=== PATIENT | male | born 1945 | race Caucasian/White ===

== ENCOUNTER 2017-03-17 20:37 | Emergency (ER) | payer MEDICARE, BC ==
[~2017-03-17] VITALS: Ht 157.5 cm; Wt 67.1 kg
[~2017-03-17 20:37] MED LIST: AMIO200T2 PO; AMIO200T7 PO; DIGO125T PO; DILT120C71 PO; DOCU-150 PO; DOXA2TAB2 PO; FURO40TA4 PO; GABA-586 PO; GABA300C8 PO; HYDR-2678 PO; HYDR-971 PO; LISI-338 PO; LUTE6TAB PO; MULT-658 PO; PROP60CA PO; WARF2TAB7 PO
[2017-03-17 21:31] LABS: POTASSIUM ISTAT 4.4 mmol/L (3.5-5.0)
--- NOTE | 2017-03-17 21:44 | PHYS DOC ---
Past Medical History Past Medical History: A-Fib, CHF Additional Past Medical Histor: neuropathy, Past Surgical History: Pacemaker Additional Past Surgical Histo: mitral valve replacement Alcohol Use: None Drug Use: None Adult General Chief Complaint Chief Complaint: MULTIPLE COMPLAINTS HPI HPI 72-year-old male presenting to the emergency department today with injury to the patient's right knee. He reports sitting up in his chair tonight when his right knee locked up and he felt a spasm. The pain in his knee/thigh is moderate nonradiating intermittent and without alleviating factors. It is worse when he extends his leg. He also complains of right shoulder pain that is chronically been present for more than 7 days. It is a throbbing sensation that is worse in the morning in improved after using his shoulder. He denies chest pain or shortness of breath. He has a history of coronary artery disease and is status post a CABG or than 10 years ago. He also has a pacemaker. He denies passing out tonight or falling. Review of systems is negative for nausea vomiting diaphoresis abdominal pain fevers or chills. All other review of systems is negative unless otherwise noted in history of present illness. ED course: 72-year-old male presenting to the emergency department today with right knee pain which is acute. He also complains of a chronic right shoulder pain. Patient is afebrile with a tachycardic pulse of 120 otherwise saturating well on room air. Patient is resting comfortably in the examination room on physical exam. Abdomen is soft nontender. Lungs are clear to auscultation. Mild irregular tachycardia noted on cardiac auscultation and palpation of the radial artery consistent with atrial fibrillation. The patient states that he commonly has to switch his heart rate medications from being too strong to being too weak , changing the dosage, which he does with his city auditor Dr. Falcon. He denies feeling short of breath or feeling palpitations. Pt strongly does not want to stay in the hospital. I discussed the case with Dr. Falcon the patient's city auditor who recommends changing his outpatient diltiazem from 120 mg to 180 mg and following up in clinic within the next 4-5 days. Review of Systems Review of Systems SEE ABOVE. Current Medications Current Medications Current Medications Medications (Trade) Dose Ordered Sig/Sara Start Time Stop Time Status Last Admin Dose Admin Acetaminophen/ Hydrocodone Bitart (Lortab 5/325) 1 tab 1X ONCE 03/17/17 22:00 03/17/17 22:01 DC 03/17/17 21:49 1 TAB Cyclobenzaprine HCl (Flexeril) 10 mg 1X ONCE 03/17/17 22:00 03/17/17 22:01 DC 03/17/17 21:49 10 MG Allergies Allergies Allergies Coded Allergies Type Severity Reaction Last Updated Verified No Known Drug Allergies 05/19/16 No Physical Exam Physical Exam SEE ABOVE Constitutional: Well developed, well nourished, no acute distress, non-toxic appearance. HENT: Normocephalic, atraumatic, bilateral external ears normal, oropharynx moist, no oral exudates, nose normal. Eyes: PERRLA, EOMI, conjunctiva normal, no discharge. Neck: Normal range of motion, no tenderness, supple, no stridor. Cardiovascular:mild tachycardia with irregular rhythm, no murmur [] Lungs & Thorax: Bilateral breath sounds clear to auscultation Abdomen: Bowel sounds normal, soft, no tenderness, no masses, no pulsatile masses. [] Skin: Warm, dry, no erythema, no rash. Back: No tenderness, no CVA tenderness. Extremities: The patient's right knee is normal appearing without any abrasions lacerations or ecchymosis. No effusion. Palpable pulse distally. Patient has pain on the medial portion of his hamstrings when he extends his leg. There is no erythema overlying. Otherwise nontender ankle and hip with normal range of motion of the ankle and hip. The patient's right upper extremity is normal appearing. He has mild pain with passive range of motion of the right shoulder. Pulses distally with normal neurovascular status of the hand. Nontender elbow. Patient is able to externally rotate and internally rotate without difficulty. He has mild pain with abduction. The remainder the extremities are nontender with normal range of motion. Neurologic: Alert and oriented X 3, normal motor function, normal sensory function, no focal deficits noted. Psychologic: Affect normal, judgement normal, mood normal. [] Current Patient Data Vital Signs Vital Signs Date Time Temp Pulse Resp B/P (MAP) Pulse Ox O2 Delivery O2 Flow Rate FiO2 03/17/17 23:23 128 115/86 (96) 94 Room Air 03/17/17 20:55 98.4 22 98.4 Lab Values Laboratory Tests Test 03/17/17 21:21 03/17/17 21:24 POC Troponin I 0.00 ng/ml (<0.08) POC Hemoglobin 13.3 g/dL (14-18) L POC Hematocrit 39 % (37-52) POC Sodium 142 mmol/L (135-145) POC Potassium 4.4 mmol/L (3.5-5.0) POC Chloride 111 mmol/L (98-110) H POC Total CO2 21 mmol/L (23-32) L Anion Gap 16 mmol/L (6-14) H POC Blood Urea Nitrogen 26 mg/dL (8-26) POC Creatinine 1.6 mg/dL (0.5-1.4) H Glucose Level 106 mg/dL (70-99) H POC Ionized Calcium (Carlos) 1.11 mmol/L (1.13-1.32) L Laboratory Tests 03/17/17 21:24 EKG EKG []EKG reviewed by myself shows atrial fibrillation with tachycardia at [address] segments show minimal isolated ST depression likely from strain vs repol in lead V5. Otherwise QRS is prolonged mildly 106ms. Radiology/Procedures Radiology/Procedures [] Course & Med Decision Making Course & Med Decision Making Pertinent Labs and Imaging studies reviewed. (See chart for details) [] Dragon Disclaimer Dragon Disclaimer This electronic medical record was generated, in whole or in part, using a voice recognition dictation system. Departure Departure Impression: Primary Impression: Right hamstring injury Additional Impressions: Right shoulder pain Tachycardia Disposition: HOME, SELF-CARE Condition: STABLE Referrals: MICHELLE FISCHER MD (PCP) Patient Instructions: Hamstring Strain Additional Instructions: Thank you for allowing us to participate in your care today. Days with your city auditor because your heart rate is a little faster than normal. He recommends that we increase your diltiazem from 120 mg to 180 mg. He recommends that you call him in clinic tomorrow to schedule appointment. Call your Primary Doctor tomorrow and inform them of your visit today. If you do not have a primary care provider you can ask for a list of our primary care providers. Return to the emergency department you have any new or concerning findings. This should be evaluated by the primary care physician and any necessary consulting services for continued management within a few days after discharge. Return to emergency room if you have any new or concerning symptoms including but not limited to fever, chills, nausea, vomiting, intractable pain, any new rashes, chest pain, shortness of air, uncontrolled bleeding, difficulty breathing, and/or vision loss. You may have been prescribed medication that can change in your level of thinking and ability to operate machinery. These medications include hydrocodone and Ativan. Also, Benadryl has been known to do this as well. Be sure to check with your pharmacist and ask if the medications you've prescribed can affect your level of consciousness. I recommend not operating heavy machinery or driving while on medication such as these. Scripts Hydrocodone Bit/Acetaminophen (HYDROCODONE-APAP 5-325 ) 1 Each Tablet 1 TAB PO PRN Q6HRS Y for PAIN, #10 TAB 0 Refills Be careful as this medication may cause you to be drowsy or tired. Do not drive on this medication. Prov: ELINOR TENA MD 03/17/17 Cyclobenzaprine Hcl (CYCLOBENZAPRINE HCL) 5 Mg Tablet 1 TAB PO TID PRN Y for PAIN, #20 TAB Prov: ELINOR TENA MD 03/17/17 Diltiazem Hcl (DILTIAZEM 24HR CD) 180 Mg Cap.er.24h 1 CAP PO DAILY, #14 CAP 0 Refills Prov: ELINOR TENA MD 03/17/17 Problem Qualifiers ELINOR TENA MD Mar 17, 2017 21:44
[2017-03-17] MEDS ORDERED: CYCLOBENZAPRINE 10 MG TABLET. PO ONE (22:00)
[2017-03-17] MEDS ORDERED: HYDROcodone/APAP 5/325MG 1 TAB TABLET PO ONE (22:00)
[2017-03-17] MEDS ORDERED: DILT180C29 PO (22:27)
--- NOTE | 2017-03-17 22:52 | RAD ---
Three-view right knee radiographs 03/17/2017 CLINICAL HISTORY: Right knee pain. AP, lateral and oblique digital radiographs of the right knee were obtained. Moderate to severe degenerative changes are seen involving all 3 compartments of the right knee. These consist of joint compartment narrowing, subchondral sclerosis and associated osteophyte formation. No acute fracture or dislocation of the right knee is seen.. There is no radiographic evidence for joint effusion. Calcification of the right popliteal artery is noted. IMPRESSION: Moderate to severe degenerative changes are seen involving the right knee. No acute osseous abnormality is seen. Electronically signed by: Manoj Fall MD (03/17/2017 10:49 PM) [facility]
[2017-03-17] MEDS ORDERED: CYCL5TAB PO (23:01)
[2017-03-17] MEDS ORDERED: HYDR-2758 PO (23:01)
[2017-03-17 23:23] VITALS: BP 115/86
--- NOTE | 2017-03-18 06:24 | EKG ---
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
--- NOTE | 2017-03-18 08:27 | RAD ---
Right shoulder, 3 views, 03/17/2017: History: Chronic pain The bony structures are demineralized. No fracture or dislocation is identified. There is minimal spurring along the glenoid rim and at the AC joint. Predominantly interstitial opacities in the right lung are unchanged since 05/29/2016. Chronic or recurrent pulmonary edema is suspected. IMPRESSION: 1. Demineralization. 2. Mild degenerative change. 3. No acute right shoulder abnormality is detected.
== END 2017-03-17 23:40 | disposition home or self-care (01) ==
LOC: ER 20:37
DX: S76.801A Unspecified injury of other specified muscles, fascia and tendons at thigh level, right thigh, initial encounter (principal); M25.511 Pain in right shoulder; R00.0 Tachycardia, unspecified; G89.29 Other chronic pain; I48.91 Unspecified atrial fibrillation; I50.9 Heart failure, unspecified; I25.10 Atherosclerotic heart disease of native coronary artery without angina pectoris; Z95.0 Presence of cardiac pacemaker; Z95.1 Presence of aortocoronary bypass graft; Z95.2 Presence of prosthetic heart valve; X58.XXXA Exposure to other specified factors, initial encounter; Y93.89 Activity, other specified; Y99.8 Other external cause status; Y92.89 Other specified places as the place of occurrence of the external cause
CPT/HCPCS: 36415; 73030; 73562; 80047; 84484; 85014; 85018; 93005; 99285-25

== ENCOUNTER → 2017-11-28 | Outpatient (CLI) | payer MEDICARE, BC | END | disposition home or self-care (01) | LOC: PMGWOUND 08:00 | DX: I87.312 Chronic venous hypertension (idiopathic) with ulcer of left lower extremity (principal); L97.221 Non-pressure chronic ulcer of left calf limited to breakdown of skin; I89.0 Lymphedema, not elsewhere classified; I25.10 Atherosclerotic heart disease of native coronary artery without angina pectoris; I13.0 Hypertensive heart and chronic kidney disease with heart failure and stage 1 through stage 4 chronic kidney disease, or unspecified chronic kidney disease; N18.3 Chronic kidney disease, stage 3 (moderate); I50.9 Heart failure, unspecified; I48.91 Unspecified atrial fibrillation; Z95.0 Presence of cardiac pacemaker; Z95.1 Presence of aortocoronary bypass graft; G60.9 Hereditary and idiopathic neuropathy, unspecified | CPT/HCPCS: 99205 ==

== ENCOUNTER → 2018-09-19 | Outpatient (CLI) | payer MEDICARE, BC ==
[~2018-09-19] MED LIST changes: -AMIO200T2 PO; +AMIO200T4 PO; +CYCL5TAB PO; +DILT180C29 PO; -GABA-586 PO; +GABA300C18 PO; -GABA300C8 PO; +HYDR-2761 PO; +HYDR-3164 PO; -HYDR-971 PO; -WARF2TAB7 PO; +WARF2TAB96 PO
--- NOTE | 2018-09-19 09:53 | CARD ---
MR#: [id number] Date of Study: 09/19/2018 Ordering Physician: HAMMAD KING, Referring Physician: HAMMAD KING, Tech: Tara Sandoval RADHA APPROVED REPORT EXAM: Two-dimensional and M-mode echocardiogram with Doppler and color Doppler. Other Information Quality : AverageHR: 65bpm Rhythm : Atrial Fibrillation INDICATION Mitral Valve Disease 2D DIMENSIONS RVDd3.8 (2.9-3.5cm)Left Atrium(2D)7.3 (1.6-4.0cm) IVSd0.8 (0.7-1.1cm)Aortic Root(2D)3.0 (2.0-3.7cm) LVDd6.3 (3.9-5.9cm)LVOT Diameter1.9 (1.8-2.4cm) PWd0.9 (0.7-1.1cm)LVDs4.9 (2.5-4.0cm) FS (%) 22.4 %SV89.3 ml LVEF(%)45.0 (>50%) M-Mode DIMENSIONS Left Atrium(MM)7.51 (2.5-4.0cm)IVSd1.21 (0.7-1.1cm) Aortic Root3.22 (2.2-3.7cm)LVDd6.27 (4.0-5.6cm) PWd0.88 (0.7-1.1cm)FS (%) 26 % LVDs4.66 (2.0-3.8cm)ESV(Teich)100.4 ml LVEF(%)50 (>50%) Aortic Valve AoV Peak Maximus.164.0cm/sAoV VTI36.0cm AO Peak GR.10.8mmHgLVOT Peak Maximus.106.6cm/s AO Mean GR.4mmHgAVA (VMAX)1.75cm2 UMA (VTI)1.30sg4ZV P 1/2 Gjbb989fu Mitral Valve MV E Oqdyqevz132.4cm/sMV E Peak Gr.110mmHg MV DECEL [id number] A Mwdabghn57.6cm/s MV E Mean Gr.11mmHgE/A Ratio3.0 Pulmonary Valve PV Peak Srajbenk417.4cm/s Tricuspid Valve TR P. Bhwhqwuf585dv/sRAP KWPIMEQA65yrRp TR Peak Gr.03hePsNPCI30hoYq LEFT VENTRICLE The Left Ventricle is moderately dilated. There is normal left ventricular wall thickness. Left ventr icle systolic function is low normal. The Ejection Fraction is 50%. RIGHT VENTRICLE The right ventricle is mildly dilated. There is normal right ventricular wall thickness. Systolic fun ction is borderline reduced. Pacer lead noted in RV/RA. ATRIA The left atrium is severely dilated. The right atrium is mildly dilated. The interatrial septum is in tact with no evidence for an atrial septal defect or patent foramen ovale as noted on 2-D or Doppler imaging. AORTIC VALVE The aortic valve is normal in structure and function. The aortic valve is trileaflet. Doppler and Col or Flow revealed moderate aortic regurgitation. There is no significant aortic valvular stenosis. MITRAL VALVE History of mitral valve repair. There is no evidence of mitral valve prolapse. There is severe mitral valve stenosis. Calculated mitral valve area is 0.8 cm2 with maximum pressure gradient of 32 mmHg an d mean pressure gradient of 11 mmHg. Doppler and Color-flow revealed moderate mitral regurgitation. TRICUSPID VALVE The tricuspid valve is normal in structure and function. Doppler and Color Flow revealed mild to mode rate tricuspid regurgitation. There is severe pulmonary hypertension. The PA pressure was estimated a t 72 mmHg. There is no tricuspid valve prolapse or vegetation. There is no tricuspid valve stenosis. PULMONIC VALVE The pulmonary valve is normal in structure and function. Doppler and Color Flow revealed no pulmonic valvular regurgitation. There is no pulmonic valvular stenosis. GREAT VESSELS The aortic root is normal in size. The ascending aorta is normal in size. The IVC is dilated and brenda apses <50% with inspiration. PERICARDIAL EFFUSION There is no evidence of significant pericardial effusion. Critical Notification Critical Value: No <Conclusion> Left ventricle systolic function is low normal. The Ejection Fraction is 50%. The right ventricle is mildly dilated. Pacer lead noted in RV/RA. The left atrium is severely dilated. Moderate aortic regurgitation. Severe mitral valve stenosis. Calculated mitral valve area is 0.8 cm2 with maximum pressure gradient of 32 mmHg and mean pressure gradient of 11 mmHg. Moderate mitral regurgitation. Mild to moderate tricuspid regurgitation. There is severe pulmonary hypertension. The PA pressure was estimated at 72 mmHg. There is no evidence of significant pericardial effusion. Signed by : Amos Carias, Electronically Approved : 09/19/2018 09:53:01
== END | disposition home or self-care (01) ==
LOC: ECHO 07:03
PROVIDERS: ATTEND Internal Medicine Cardiovascular Disease
DX: I08.3 Combined rheumatic disorders of mitral, aortic and tricuspid valves (principal); I27.20 Pulmonary hypertension, unspecified; I48.91 Unspecified atrial fibrillation
CPT/HCPCS: 93306

== ENCOUNTER → 2020-01-14 | Outpatient (CLI) | payer MEDICARE, BC ==
[~2020-01-14] MED LIST changes: -DIGO125T PO; +DIGO125T3 PO; -PROP60CA PO; +PROP60CA44 PO
--- NOTE | 2020-01-14 15:48 | CARD ---
MR#: [id number] Date of Study: 01/14/2020 Ordering Physician: HAMMAD KING, Referring Physician: HAMMAD KING, Tech: Joyce Reeves APPROVED REPORT EXAM: Two-dimensional and M-mode echocardiogram with Doppler and color Doppler. Other Information Quality : AverageHR: 78bpm INDICATION Atrial Fibrillation Mitral Valve Disease Surgery/Intervention Pacemaker: Date: 2012 Mitral Valve repair 2003 2D DIMENSIONS RVDd4.6 (2.9-3.5cm)Left Atrium(2D)6.2 (1.6-4.0cm) IVSd1.0 (0.7-1.1cm)Aortic Root(2D)3.0 (2.0-3.7cm) LVDd5.9 (3.9-5.9cm)LVOT Diameter2.1 (1.8-2.4cm) PWd1.1 (0.7-1.1cm)LVDs3.6 (2.5-4.0cm) FS (%) 39.7 %SV121.7 ml LVEF(%)69.5 (>50%) Aortic Valve AoV Peak Maximus.331.4cm/sAoV NER977.3cm AO Peak GR.43.9mmHgLVOT Peak Maximus.113.0cm/s LVOT VTI 20.41cmAO Mean GR.49mmHg UMA (VMAX)0.46ox3LOO (VTI)0.58cm2 AI P 1/2 Hqak599rs Mitral Valve MV E Ayksemqm092.6cm/sMV E Peak Gr.127mmHg MV DECEL [id number] A Tppuaefw182.6cm/s MV E Mean Gr.6mmHgMV LDI81xb E/A Ratio1.6MVA (PHT)4.83cm2 TDI E/Lateral E'28.9E/Medial E'36.4 Pulmonary Valve PV Peak Mjquwpgk87.1cm/sPV Peak Grad.4mmHg Tricuspid Valve TR P. Yyidaeko459bi/sRAP YBRTFTIJ2leKf TR Peak Gr.49naIuTXYF77igMk LEFT VENTRICLE The left ventricle is normal size. There is mild concentric left ventricular hypertrophy. The left ve ntricular systolic function is normal and the ejection fraction is within normal range. The Ejection Fraction is 55-60%. Wall motion consistent with pacemaker activation. Transmitral Doppler flow patter n is Grade III-reversible restrictive diastolic dysfunction. No left ventricle thrombus noted on this study. RIGHT VENTRICLE The right ventricle is normal size. There is normal right ventricular wall thickness. The right ventr icular systolic function is normal. There is a catheter in the right ventricle. ATRIA The left atrium is severely dilated. The right atrium size is normal. The interatrial septum is intac t with no evidence for an atrial septal defect or patent foramen ovale as noted on 2-D or Doppler alondra ging. AORTIC VALVE The aortic valve is calcified but opens well. Doppler and Color Flow revealed mild to moderate aortic regurgitation. There is probable moderate aortic stenosis, doppler signal may artifactually be eleva marlee with a MG of 50 mm Hg. MITRAL VALVE Mitral valve repair surgery 2003. There is no evidence of mitral valve prolapse. There is moderate mi tral valve stenosis with an mean gradient of 7 mmHg. Doppler and Color-flow revealed severe mitral re gurgitation. TRICUSPID VALVE The tricuspid valve is normal in structure and function. Doppler and Color Flow revealed mild tricusp id regurgitation with an estimated PAP of 71mmHg. There is no tricuspid valve stenosis. PULMONIC VALVE The pulmonic valve is not well visualized. Doppler and Color Flow revealed trace pulmonic valvular re gurgitation. There is no pulmonic valvular stenosis. GREAT VESSELS The aortic root is normal in size. The ascending aorta is normal in size. The IVC is dilated. PERICARDIAL EFFUSION There is no evidence of significant pericardial effusion. Critical Notification Critical Value: No <Conclusion> The left ventricular systolic function is normal and the ejection fraction is within normal range. Th e Ejection Fraction is 55-60%. Wall motion consistent with pacemaker activation. Transmitral Doppler flow pattern is Grade III-reversible restrictive diastolic dysfunction. There is a catheter in the right ventricle. The left atrium is severely dilated. Doppler and Color Flow revealed mild to moderate aortic regurgitation. There is probable moderate aortic stenosis, doppler signal may artifactually be elevated with a MG of 50 mm Hg. Doppler and Color-flow revealed severe mitral regurgitation. Doppler and Color Flow revealed mild tricuspid regurgitation with an estimated PAP of 71mmHg. Consider SOLA for further evaluation. Signed by : Elijah Nguyen, Electronically Approved : 01/14/2020 15:48:29
== END | disposition home or self-care (01) ==
LOC: ECHO 07:26
PROVIDERS: ATTEND Internal Medicine Cardiovascular Disease
DX: I08.3 Combined rheumatic disorders of mitral, aortic and tricuspid valves (principal)
CPT/HCPCS: 93306

== ENCOUNTER 2020-02-27 21:30 | Emergency (ER) | payer MEDICARE, BC ==
[~2020-02-27] VITALS: Ht 172.7 cm; Wt 59.4 kg
[~2020-02-27 21:30] MED LIST changes: +ALLO100T PO; +ASCO500T4 PO; +ATOR20TA58 PO; +COLC0.6T42 PO; +FERR236T2 PO; +LACT1CAP19 PO; +METO2.5T PO; +MULT-697 PO; +POTA10TA12 PO; +TIZA4TAB2 PO; +VANC125C3 PO; +WARF4TAB64 PO
--- NOTE | 2020-02-27 22:14 | PHYS DOC ---
Past Medical History Past Medical History: A-Fib, CHF Additional Past Medical Histor: neuropathy, Past Surgical History: Pacemaker Additional Past Surgical Histo: mitral valve replacement Smoking Status: Current Every Day Smoker Alcohol Use: None Drug Use: None General Adult EDM: Chief Complaint: NAUSEA/VOMITING/DIARRHA HPI: HPI: 89-year-old male past medical history significant for atrial fibrillation on Coumadin, hyperrtension, hyperlipidemia, congestive heart failure and gout with recent admission to the hospital for toe osteomyelitis, presents to the ED to be after pt was discharged from the hospital a few hours prior, with complaints of nasuea and vomiting that started tonight. Patient reports "I'm always being treated for diarrhea," and describes his stools as big round soft pancakes. Surgical history of right inguinal herniorrhaphy. No associated abdominal pain. Patient reports he was on his way to get his antibiotic for his PICC line when his symptoms started. Review of Systems: Review of Systems: Constitutional: Denies fever or chills. [] Eyes: Denies change in visual acuity. [] HENT: Denies nasal congestion or sore throat. [] No hemoptysis Respiratory: Denies cough or shortness of breath. [] Cardiovascular: Denies chest pain or edema. [] GI: Denies melena or hematochezia : Denies dysuria. [] Musculoskeletal: Denies back pain or joint pain. [] Integument: Denies rash. [] No diaphoresis Neurologic: Denies headache, focal weakness or sensory changes. [] No nuchal rigidity Endocrine: Denies polyuria or polydipsia. [] Lymphatic: Denies swollen glands. [] Psychiatric: Denies depression or anxiety. [] Heart Score: Risk Factors: Risk Factors: DM, Current or recent (<one month) smoker, HTN, HLP, family history of CAD, obesity. Risk Scores: Score 0 - 3: 2.5% MACE over next 6 weeks - Discharge Home Score 4 - 6: 20.3% MACE over next 6 weeks - Admit for Clinical Observation Score 7 - 10: 72.7% MACE over next 6 weeks - Early Invasive Strategies Allergies: Allergies: Allergies Coded Allergies Type Severity Reaction Last Updated Verified No Known Drug Allergies 05/19/16 No Physical Exam: PE: Constitutional: Well developed, well nourished, no acute distress, non-toxic appearance. [] HENT: Normocephalic, atraumatic, bilateral external ears normal, oropharynx moist, no oral exudates, nose normal. [] Eyes: EOMI, conjunctiva normal, no discharge. [] Neck: Normal range of motion, supple, no stridor. [] Cardiovascular:irregular rhythm in rvr, no murmur [] Lungs & Thorax: Bilateral breath sounds clear to auscultation [] Abdomen: Bowel sounds normal, soft, no tenderness, no masses, no pulsatile masses. [] Skin: Warm, dry, no erythema, no rash. [] Back: No tenderness, no CVA tenderness. [] Extremities: No tenderness, no cyanosis, no clubbing, Neurologic: Alert and oriented X 3, normal motor function, normal sensory function, no focal deficits noted. [] Psychologic: Affect normal, judgement normal, mood normal. [] EKG: EKG: Atrial fibrillation RVR 152 bpm, extreme right axis deviation, no T wave inversions, no apparent ST elevations or ST depressions IMAGING REPORT Signed PATIENT: SHAYNA GODDARD ACCOUNT: [id number] : 1945 LOCATION: ER AGE: 75 SEX: M EXAM STATUS: REG ER ORD. PHYSICIAN: PAUL MRUPHY DO REASON: n/v PROCEDURE: PORTABLE CHEST 1V INDICATION: Reason: n/v / Spl. Instructions: / History: COMPARISON: February 18, 2020 FINDINGS: Single view of chest obtained. Cardiac silhouette is enlarged with poststernotomy changes and calcific atherosclerosis. Pacemaker. Right-sided PICC line with tip near expected location of atriocaval junction. There is coarsened lung markings bilaterally with mild interstitial opacities. IMPRESSION: * Mild interstitial opacities bilaterally. A portion of this is likely chronic in nature but appears slightly increased from prior which could be from superimposed mild edema or infiltrate Electronically signed by: Skylar Wilcox MD (02/27/2020 11:12 PM) [id number] DICTATED and SIGNED BY: SKYLAR WILCOX MD DATE: 02/27/20 2312 Radiology/Procedures: Radiology/Procedures: []IMAGING REPORT Signed PATIENT: NAVNEET GODDARDALD WACCOUNT: [id number] : 1945 LOCATION: ER AGE: 75 SEX: M EXAM STATUS: REG ER ORD. PHYSICIAN: PAUL MURPHY DO REASON: n/v/d PROCEDURE: CT ABDOMEN PELVIS WO CONTRAST INDICATION: Reason: n/v/d / Spl. Instructions: / History: COMPARISON: None. TECHNIQUE: Axial CT images obtained through the abdomen and pelvis without contrast. One or more of the following individualized dose reduction techniques were utilized for this examination: 1. Automated exposure control; 2. Adjustment of the mA and/or kV according to patient size; 3. Use of iterative reconstruction technique. FINDINGS: Small left greater than right pleural effusion. Mild interstitial thickening at the lung bases. Mild opacification of left lung base. Large left-sided inguinal hernia with loops of bowel within. Right-sided inguinal hernia is seen as well with a couple of loops of bowel seen at proximal aspect. Severe calcific atherosclerosis. The heart is enlarged. Pacemaker lead seen. There are some calcifications within the left ventricle. Liver is prominent in size. Gallstones. Cystic lesion within the liver centrally measuring 26 mm. Limited assessment of pancreas without contrast. Spleen is enlarged. Nodular thickening of the left adrenal gland up to about 12 mm. Cystic lesions of the left kidney. Urinary bladder is distended at time of exam. Couple of suspected diverticula including at the right posterior laterally measuring up to about 3 cm. Enlarged prostate with calcific atherosclerosis. The possible appendix does not appear grossly dilated No evidence of bowel obstruction. Degenerative changes the spine with multilevel central canal and neural foraminal stenosis callus formation at the left pelvis which could be from prior injury. There is some fluid and edema to the fat within the right groin at proximal aspect of right inguinal canal measures up to about 43 mm. A portion appears higher than simple density. IMPRESSION: * No evidence of bowel obstruction. * Small pleural effusions with interstitial thickening at the lung bases which could be from mild edema or interstitial infiltrate. Atelectasis could also have this appearance. * Gallstone is seen. * Hepatosplenomegaly. * Dilated urinary bladder at time of exam with diverticula seen. * Left inguinal hernia with multiple loops of bowel extending into the hernia sac. There is also a right inguinal hernia with some fluid and higher density component seated at its proximal aspect. Would correlate as to whether the patient has had a history of surgery to the region since postoperative changes could have this appearance. Additionally this could be secondary to some fluid with debris or blood within given the higher than simple density component within a portion of it. Electronically signed by: Skylar Wilcox MD (02/28/2020 12:07 AM) [id number] Course & Med Decision Making: Course & Med Decision Making Pertinent Labs and Imaging studies reviewed. (See chart for details) Concern for atrial fibrillation with RVR, started on cardizem drip. Also requiring oxygen. Will admit for further medical management. I have spoken with the patient and/or caregivers. I have explained the patient's condition, diagnosis and treatment plan based on the information available to me at this time. I have answered the patient's and/or caregivers questions and answered any concerns. The patient and/or caregivers have as good an understanding of the patient's diagnosis, condition and treatment plan as can be expected at this point. The patient has been stabilized within the capability of the emergency department. The patient will be transported for further care and management or will be moved to an observation or inpatient service. I have communicated with the staff or medical practitioner taking over this patient's care. Gael Disclaimer: Dragon Disclaimer: This electronic medical record was generated, in whole or in part, using a voice recognition dictation system. Departure Departure Impression: Primary Impression: Atrial fibrillation with rapid ventricular response Disposition: ADMITTED INPATIENT Admitting Physician: Michelle Wilcox Condition: GUARDED Referrals: MICHELLE WILCOX MD (PCP) Justicifation of Admission Dx: Justifications for Admission: Justification of Admission Dx: Yes CHF: Cardiac Arrhythmias Angina: [facility] PAUL MURPHY DO Feb 27, 2020 22:14
[2020-02-27] MEDS ORDERED: ONDANSETRON PF 4 MG/2 ML VIAL. IV ONE (22:30)
[2020-02-27] MEDS ORDERED: FAMOTIDINE 20 MG/2 ML VIAL IVP ONE (22:30)
[2020-02-27] MEDS ORDERED: dilTIAZem IV PUSH 25 MG/5 ML VIAL IVP ONE (22:30)
[2020-02-27 22:35] LABS: BASO # 0.1 x10^3/uL (0.0-0.2); BASO % 1 % (0-3); EOS # 0.1 x10^3/uL (0.0-0.7); EOS % 1 % (0-3); HEMOGLOBIN 12.7 g/dL (13.0-17.5); LYMPH % 10 % (24-48); MEAN CORPUSCULAR HEMOGLOBIN 30 pg (25-35); MEAN CORPUSCULAR HGB CONC 34 g/dL (31-37); MEAN CORPUSCULAR VOLUME 89 fL (79-100); MONO # 0.5 x10^3/uL (0.0-1.1); MONO % 6 % (0-9); NEUT # 8.1 x10^3/uL (1.8-7.7); NEUT % 83 % (31-73); PLATELET COUNT 173 x10^3/uL (140-400); RED BLOOD COUNT 4.25 x10^6/uL (4.30-5.70); RED CELL DISTRIBUTION WIDTH 16.1 % (11.5-14.5); WHITE BLOOD COUNT 9.8 x10^3/uL (4.0-11.0)
[2020-02-27 22:40] LABS: PROTHROMBIN TIME PATIENT 26.1 SEC (11.7-14.0)
[2020-02-27 22:43] LABS: CALCIUM 9.7 mg/dL (8.5-10.1); CREATININE 1.7 mg/dL (0.7-1.3); GFR 39.4; POTASSIUM 4.5 mmol/L (3.5-5.1)
[2020-02-27 22:51] LABS: ALBUMIN 3.5 g/dL (3.4-5.0); DIRECT BILIRUBIN 0.6 mg/dL (0.0-0.2); TOTAL BILIRUBIN 1.5 mg/dL (0.2-1.0); TOTAL PROTEIN 7.6 g/dL (6.4-8.2)
--- NOTE | 2020-02-27 23:15 | RAD ---
INDICATION: Reason: n/v / Spl. Instructions: / History: COMPARISON: February 18, 2020 FINDINGS: Single view of chest obtained. Cardiac silhouette is enlarged with poststernotomy changes and calcific atherosclerosis. Pacemaker. Right-sided PICC line with tip near expected location of atriocaval junction. There is coarsened lung markings bilaterally with mild interstitial opacities. IMPRESSION: * Mild interstitial opacities bilaterally. A portion of this is likely chronic in nature but appears slightly increased from prior which could be from superimposed mild edema or infiltrate Electronically signed by: Gurvinder Wilcox MD (02/27/2020 11:12 PM) [id number]
--- NOTE | 2020-02-28 00:10 | RAD ---
INDICATION: Reason: n/v/d / Spl. Instructions: / History: COMPARISON: None. TECHNIQUE: Axial CT images obtained through the abdomen and pelvis without contrast. One or more of the following individualized dose reduction techniques were utilized for this examination: 1. Automated exposure control; 2. Adjustment of the mA and/or kV according to patient size; 3. Use of iterative reconstruction technique. FINDINGS: Small left greater than right pleural effusion. Mild interstitial thickening at the lung bases. Mild opacification of left lung base. Large left-sided inguinal hernia with loops of bowel within. Right-sided inguinal hernia is seen as well with a couple of loops of bowel seen at proximal aspect. Severe calcific atherosclerosis. The heart is enlarged. Pacemaker lead seen. There are some calcifications within the left ventricle. Liver is prominent in size. Gallstones. Cystic lesion within the liver centrally measuring 26 mm. Limited assessment of pancreas without contrast. Spleen is enlarged. Nodular thickening of the left adrenal gland up to about 12 mm. Cystic lesions of the left kidney. Urinary bladder is distended at time of exam. Couple of suspected diverticula including at the right posterior laterally measuring up to about 3 cm. Enlarged prostate with calcific atherosclerosis. The possible appendix does not appear grossly dilated No evidence of bowel obstruction. Degenerative changes the spine with multilevel central canal and neural foraminal stenosis callus formation at the left pelvis which could be from prior injury. There is some fluid and edema to the fat within the right groin at proximal aspect of right inguinal canal measures up to about 43 mm. A portion appears higher than simple density. IMPRESSION: * No evidence of bowel obstruction. * Small pleural effusions with interstitial thickening at the lung bases which could be from mild edema or interstitial infiltrate. Atelectasis could also have this appearance. * Gallstone is seen. * Hepatosplenomegaly. * Dilated urinary bladder at time of exam with diverticula seen. * Left inguinal hernia with multiple loops of bowel extending into the hernia sac. There is also a right inguinal hernia with some fluid and higher density component seated at its proximal aspect. Would correlate as to whether the patient has had a history of surgery to the region since postoperative changes could have this appearance. Additionally this could be secondary to some fluid with debris or blood within given the higher than simple density component within a portion of it. Electronically signed by: Gurvinder Wilcox MD (02/28/2020 12:07 AM) [id number]
[2020-02-28] MEDS ORDERED: NITROGLYCERIN SUBLINGUAL 0.4 MG BOTTLE OF 25. SL ONE (02:07)
[2020-02-28] MEDS: NITROGLYCERIN SUBLINGUAL 0.4 MG BOTTLE OF 25. SL PRN ×3 (02:33→02:46)
[2020-02-28] MEDS: DILTIAZEM HCL 125 MG in IV NORMAL SALINE 100ML 100 ML IV PRN ×3 (02:38→05:32)
[2020-02-28] MEDS ORDERED: HYDROcodone/APAP 5/325MG 1 TAB TABLET PO ONE (03:15)
--- NOTE | 2020-02-28 05:59 | EKG ---
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
--- NOTE | 2020-02-28 06:03 | EKG ---
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
--- NOTE | 2020-02-28 08:17 | PDOC ---
Provider Note Date of Service: DATE: 02/28/20 TIME: 08:13 Provider Note [id number] Justifications for Admission Other Justification MICHELLE FISCHER MD Feb 28, 2020 08:17
[2020-02-28] MEDS ORDERED: HYDROcodone/APAP 5/325MG 1 TAB TABLET PO PRN (08:30)
[2020-02-28] MEDS ORDERED: DOXAZOSIN MESYLATE 1 MG TABLET. PO SCH (10:00)
[2020-02-28] MEDS ORDERED: ALLOPURINOL 100 MG TABLET. PO SCH (10:00)
[2020-02-28] MEDS ORDERED: PROPRANOLOL ER 60 MG CAP.SA.24H. PO SCH (10:00)
[2020-02-28] MEDS ORDERED: LACTOBACILLUS RHAMNOSUS GG 1 CAPSULE. PO SCH (10:00)
[2020-02-28] MEDS ORDERED: GABAPENTIN 300 MG CAPSULE. PO SCH (10:00)
[2020-02-28] MEDS ORDERED: ASCORBIC ACID 500 MG TABLET PO SCH (10:00)
[2020-02-28] MEDS ORDERED: DIGOXIN 125 MCG TABLET. PO SCH (10:00)
[2020-02-28] MEDS ORDERED: MULTIVITAMIN with MINERAL TABLET. PO SCH (10:00)
[2020-02-28] MEDS ORDERED: DAPTOmycin (GENERIC) IVPB 400 MG in IV NORMAL SALINE 50ML 50 ML IV ONE (11:30)
--- NOTE | 2020-02-28 11:45 | PDOC ---
CARDIO Progress Notes Date and Time Date of Service 02/28/20 Time of Evaluation 1130 Subjective Subjective: No Chest Pain, No shortness of breath, No Palpitations Vitals Vitals Vital Signs Date Time Temp Pulse Resp B/P (MAP) Pulse Ox O2 Delivery O2 Flow Rate FiO2 02/28/20 11:14 76 125/57 02/28/20 07:05 98.7 19 96 98.7 Weight Weight [ ] Laboratory Labs Laboratory Tests Test 02/27/20 22:20 02/28/20 02:22 White Blood Count 9.8 x10^3/uL (4.0-11.0) Red Blood Count 4.25 x10^6/uL (4.30-5.70) Hemoglobin 12.7 g/dL (13.0-17.5) Hematocrit 38.0 % (39.0-53.0) Mean Corpuscular Volume 89 fL (79-100) Mean Corpuscular Hemoglobin 30 pg (25-35) Mean Corpuscular Hemoglobin Concent 34 g/dL (31-37) Red Cell Distribution Width 16.1 % (11.5-14.5) Platelet Count 173 x10^3/uL (140-400) Neutrophils (%) (Auto) 83 % (31-73) Lymphocytes (%) (Auto) 10 % (24-48) Monocytes (%) (Auto) 6 % (0-9) Eosinophils (%) (Auto) 1 % (0-3) Basophils (%) (Auto) 1 % (0-3) Neutrophils # (Auto) 8.1 x10^3/uL (1.8-7.7) Lymphocytes # (Auto) 1.0 x10^3/uL (1.0-4.8) Monocytes # (Auto) 0.5 x10^3/uL (0.0-1.1) Eosinophils # (Auto) 0.1 x10^3/uL (0.0-0.7) Basophils # (Auto) 0.1 x10^3/uL (0.0-0.2) Prothrombin Time 26.1 SEC (11.7-14.0) Prothromb Time International Ratio 2.4 (0.8-1.1) Activated Partial Thromboplast Time 36 SEC (24-38) Sodium Level 139 mmol/L (136-145) Potassium Level 4.5 mmol/L (3.5-5.1) Chloride Level 104 mmol/L (98-107) Carbon Dioxide Level 23 mmol/L (21-32) Anion Gap 12 (6-14) Blood Urea Nitrogen 29 mg/dL (8-26) Creatinine 1.7 mg/dL (0.7-1.3) Estimated GFR (Cockcroft-Gault) 39.4 Glucose Level 142 mg/dL (70-99) Calcium Level 9.7 mg/dL (8.5-10.1) Total Bilirubin 1.5 mg/dL (0.2-1.0) Direct Bilirubin 0.6 mg/dL (0.0-0.2) Aspartate Amino Transf (AST/SGOT) 23 U/L (15-37) Alanine Aminotransferase (ALT/SGPT) 11 U/L (16-63) Alkaline Phosphatase 81 U/L (46-116) Creatine Kinase 54 U/L (39-308) Troponin I Quantitative < 0.017 ng/mL (0.000-0.055) < 0.017 ng/mL (0.000-0.055) Total Protein 7.6 g/dL (6.4-8.2) Albumin 3.5 g/dL (3.4-5.0) Lipase 200 U/L (73-393) Physical Exam HEENT: Neck Supple W Full Motion Chest: Symmetric LUNGS: Other (diminished bases) Heart: irregularly irregular (AFIB rate controlled ) Abdomen: Soft N/T Extremities: Other (right foor wound vac) Neurology: alert, oriented, follow commands, other (appears fatigued) Assessment Assessment This is a 75 yo male who presented secondary to nausea/vomiting/diarrhea. Not feeling well overall. Was note in AFIB with RVR, which prompted this consult. Was seen by our service this past week for AFIB. Was hospitalized for approximately 10 days for second toe osteomyelitis, status post amputation. Cultures with MSSA. ID recommended Daptomycin for outpatient daily therapy for 4 to 6 weeks. Patient refused placement is SNU. Also noted to be + for Cdiff. Patient discharged home yesterday and was home about an hour and a half and did not feel well. Was having some nausea/vomiting and diarrhea. Had brother take him back to the ED. Repots he need SNU placement as it will be difficult to come back daily for 4-6 weeks for outpatient antibiotic therapy and his brother lives an hour away and is not feasible for him to commute. Assessment 1. Nausea/vomiting/diarrhea; C-diff + 02/22 2. Chronic AFIB with RVR. Rate now controlled with Cardizem gtt and digoxin. Warfarin for stroke prophylaxis. INR 2.4 3. Right second toe osteomyelitis; s/p amputation last week 4. PPM in situ: [facility]: VVIR 5. Chronic diastolic CHF: compensated 6. Valvular disease: mod , severe MR (history of MV repair) verified via [facility]. Continue medical treatment as patient does not want any further surgery 7. Secondary severe pulmonary HTN 8. CKD Recommendations Resume oral Cardizem for rate control. Increaser to 240mg daily if BP will allow; titrate off gtt Continue Digoxin On propranolol for tremors. Continue warfarin for stroke prevention Ongoing antibiotic therapy Patient now wanting SNU placement upon discharge Supportive care Justicifation of Admission Dx: Justifications for Admission: Justification of Admission Dx: Yes CHF: Cardiac Arrhythmias Angina: [facility] SHAWNEE BROOKS APRN Feb 28, 2020 11:45
--- NOTE | 2020-02-28 15:18 | SNU/HH DC ---
DISCHARGE ORDERS DISCHARGE INFORMATION: DISCHARGE DATE: Feb 28, 2020 FINAL DIAGNOSIS Problems Medical Problems: (1) Atrial fibrillation with rapid ventricular response Status: Acute CONDITION ON DISCHARGE: Stable CODE STATUS: Code Status: Full MCFP: SNF STAY <30 DAYS: Yes HOSPICE: HOSPICE: No HOSPICE EVAL & TREAT: No POST DISCHARGE ORDERS: ACTIVITY ORDERS: Activity as tolerated, Avoid exertion WOUND/INCISION CARE: Ice to area for comfort TREATMENT/EQUIPMENT ORDERS: ADAPTIVE EQUIPMENT NEEDED: None DISCHARGE MEDICATIONS: Home Meds Active Scripts Vancomycin Hcl (VANCOMYCIN HCL) 125 Mg Capsule, 1 CAP PO QID for cdiff for 14 Days, #56 CAP 0 Refills Prov:LEONOR ESTRADA MD 02/27/20 Ascorbic Acid (VITAMIN C) 500 Mg Tablet, 500 MG PO DAILY for wound healing for 30 Days, #30 TAB 0 Refills Prov:LEONOR ESTRADA MD 02/27/20 Lactobacillus Rhamnosus Gg (CULTURELLE) 1 Each Cap.sprink, 1 CAP PO BID for probiotic for 30 Days, #60 CAP 2 Refills Prov:LEONOR ESTRADA MD 02/27/20 Warfarin Sodium (WARFARIN SODIUM) 4 Mg Tablet, 4 MG PO DAILY16 for afib for 30 Days, #30 TAB 1 Refill Prov:LEONOR ESTRADA MD 02/27/20 Atorvastatin Calcium (ATORVASTATIN CALCIUM) 20 Mg Tablet, 20 MG PO QHS for cholesterol for 30 Days, #30 TAB 3 Refills Prov:LEONOR ESTRADA MD 02/27/20 Hydrocodone Bit/Acetaminophen (HYDROCODONE-APAP 5-325 ) 1 Each Tablet, 1 TAB PO PRN Q6HRS PRN for PAIN, #10 TAB 0 Refills Be careful as this medication may cause you to be drowsy or tired. Do not drive on this medication. Prov:ELINOR TENA MD 03/17/17 Furosemide (FUROSEMIDE) 40 Mg Tablet, 40 MG PO qod for edema, #30 CAP Prov:MICHELLE FISCHER MD 06/02/16 Reported Medications Allopurinol (ALLOPURINOL) 100 Mg Tablet, 1 TAB PO DAILY for GOUT MDD 100 MG 02/19/20 Ferrous Gluconate (IRON) 236 Mg Tablet, 1 TAB PO QODAY for kidney disease for 30 Days, #30 TAB 0 Refills 02/18/20 Tizanidine Hcl (TIZANIDINE HCL) 4 Mg Tablet, 2 TAB PO QHS for restless legs, #30 TAB 9/14/20 Potassium Chloride (KLOR-CON 10) 10 Meq Tablet.er, 1 TAB PO DAILY for replacment for 30 Days, #30 TAB 0 Refills 02/18/20 Metolazone (METOLAZONE) 2.5 Mg Tablet, 2.5 MG PO DAILY for enhance lasic, #30 TAB 0 Refills 02/18/20 Diltiazem Hcl (CARTIA XT) 120 Mg Cap.er.24h, 1 CAP PO DAILY for heart for 30 Days, #30 CAP 0 Refills 02/18/20 Multivits-Min/Fa/Lycopene/Lut (CENTRUM SILVER TABLET) 1 Each Tablet, 1 EACH PO DAILY 05/28/16 Lutein (LUTEIN) 6 Mg Tablet, 6 MG PO DAILY 05/28/16 Docusate Sodium (STOOL SOFTENER) 100 Mg Capsule, 100 MG PO 05/24/16 Doxazosin Mesylate (DOXAZOSIN MESYLATE) 2 Mg Tablet, 2 MG PO DAILY 11/11/15 Propranolol Hcl (PROPRANOLOL HCL) 60 Mg Cap.sa.24h, 60 MG PO DAILY, #30 11/11/15 Digoxin (DIGOXIN) 125 Mcg Tablet, 125 MCG PO QODAY, #30 11/11/15 Gabapentin (GABAPENTIN) 300 Mg Capsule, 900 MG PO BID for pain, #3 neurapathy in feet and hands 11/11/15 Discontinued Reported Medications Colchicine (Colchicine) 0.6 Mg Tablet, 1 TAB PO DAILY for GOUT PAIN MDD 0.6 MG 02/19/20 Warfarin Sodium (WARFARIN SODIUM) 2 Mg Tablet, 2.5 MG PO DAILY for thinner blood, #60 11/11/15 Discontinued Scripts Diltiazem Hcl (DILTIAZEM 24HR CD) 180 Mg Cap.er.24h, 1 CAP PO DAILY, #14 CAP 0 Refills Prov:ELINOR TNEA MD 03/17/17 REYNA MAXWELL MD Feb 28, 2020 15:18
--- NOTE | 2020-02-28 15:42 | NUR ---
SS following for assistance with discharge planning. Pt requesting to go to halfway unit at [facility]. Referral sent to [facility], ; fax [phone]. SS coordinated with Seda at [facility]. Pt accepted. Discharge orders received and sent to [facility]. Pt will discharge today and go to [facility] between 1700 and 1730 via [employer] [facility]. Pt's RN notified.
[2020-02-28] MEDS ORDERED: WARFARIN 4 MG TABLET. PO SCH (16:00)
[2020-02-28 17:00] VITALS: BP 153/68
[2020-02-28] MEDS ORDERED: ATORVASTATIN CALCIUM 20 MG TABLET PO SCH (21:00)
[2020-02-28] MEDS ORDERED: tiZANidine 4 MG TABLET. PO SCH (21:00)
== END 2020-02-28 03:29 | disposition other institution (70) ==
LOC: ER 21:30 → UNDOADMIN 02-28 03:28 → ED HOLD 02-28 03:28
DX: I48.20 Chronic atrial fibrillation, unspecified (principal); R11.2 Nausea with vomiting, unspecified; R19.7 Diarrhea, unspecified; I50.9 Heart failure, unspecified; F17.200 Nicotine dependence, unspecified, uncomplicated; Z95.0 Presence of cardiac pacemaker; Z98.890 Other specified postprocedural states
CPT/HCPCS: 36415; 71045; 74176; 80048; 80076; 82550; 83690; 84484; 85025; 85610; 85730; 93005; 96374; 96375; 99285; J0878; J2405; J3490

== ENCOUNTER 2020-03-23 03:36 | Inpatient (IN) | payer MEDICARE, BC ==
[~2020-03-23] VITALS: Ht 172.7 cm; Wt 61.8 kg
[2020-03-23] VITALS (7 sets, daily range): BP systolic 116–154; BP diastolic 52–72
[~2020-03-23 03:36] MED LIST changes: -AMIO200T4 PO; +AMIO200T6 PO
[2020-03-23] MEDS ORDERED: dilTIAZem IV PUSH 25 MG/5 ML VIAL IVP ONE (04:30)
[2020-03-23] MEDS ORDERED: ONDANSETRON PF 4 MG/2 ML VIAL. IVP ONE (04:30)
--- NOTE | 2020-03-23 04:37 | PHYS DOC ---
Past Medical History Past Medical History: A-Fib, CHF Additional Past Medical Histor: neuropathy, Past Surgical History: Pacemaker Additional Past Surgical Histo: mitral valve replacement Smoking Status: Current Every Day Smoker Alcohol Use: None Drug Use: None General Adult EDM: Chief Complaint: RAPID HEART RATE HPI: HPI: Patient is a 75 year old male with past medical history ARenny skinner presents with a chief complaint of dizziness and weakness. Patient states this AM he was in his bathroom suddenly felt dizzy and collapsed. Patient states his he was on the floor and could not get up. Patient estimates he was on the floor for 2 hours. EKG on arrival shows a heart rate of 160 A. fib with RVR. Patient is also noted to have left-sided facial contusions. Patient states he was recently hospitalized for bilateral lower extremities infections with an amputation of 2nd right toe. Patient states he was discharged from [facility] yesterday. Review of Systems: Review of Systems: Constitutional: Denies fever or chills. [] Eyes: Denies change in visual acuity. [] HENT: Denies nasal congestion or sore throat. [] Respiratory: Denies cough or shortness of breath. [] Cardiovascular: positive palpitations GI: Denies abdominal pain, nausea, vomiting, bloody stools or diarrhea. [] : Denies dysuria. [] Musculoskeletal: Denies back pain or joint pain. [] Integument: Denies rash. [] Neurologic: Denies headache, focal weakness or sensory changes. [positive dizziness positive generalized weakness] Endocrine: Denies polyuria or polydipsia. [] Lymphatic: Denies swollen glands. [] Psychiatric: Denies depression or anxiety. [] Heart Score: Risk Factors: Risk Factors: DM, Current or recent (<one month) smoker, HTN, HLP, family history of CAD, obesity. Risk Scores: Score 0 - 3: 2.5% MACE over next 6 weeks - Discharge Home Score 4 - 6: 20.3% MACE over next 6 weeks - Admit for Clinical Observation Score 7 - 10: 72.7% MACE over next 6 weeks - Early Invasive Strategies Current Medications: Current Medications Medications (Trade) Dose Ordered Sig/Sara Start Time Stop Time Status Last Admin Dose Admin Diltiazem HCl (Cardizem Iv Push) 15 mg 1X ONCE 03/23/20 04:30 03/23/20 04:31 DC 03/23/20 04:27 15 MG Ondansetron HCl (Zofran) 4 mg 1X ONCE 03/23/20 04:30 03/23/20 04:31 DC 03/23/20 04:27 4 MG Allergies: Allergies: Allergies Coded Allergies Type Severity Reaction Last Updated Verified No Known Drug Allergies 05/19/16 No Physical Exam: PE: Constitutional: Well developed, well nourished, no acute distress, non-toxic appearance. [] HENT: Normocephalic, atraumatic, bilateral external ears normal, oropharynx moist, no oral exudates, nose normal. [] Eyes: PERRLA, EOMI, conjunctiva normal, no discharge. [] Neck: Normal range of motion, no tenderness, supple, no stridor. [] Cardiovascular:tachycardia Lungs & Thorax: Bilateral breath sounds clear to auscultation [] Abdomen: Bowel sounds normal, soft, no tenderness, no masses, no pulsatile masses. [] Skin: Warm, dry, no erythema, no rash. [forhead contusion] Back: No tenderness, no CVA tenderness. [] Extremities: No tenderness, no cyanosis, no clubbing, ROM intact, no edema. [] Neurologic: Alert and oriented X 3, normal motor function, normal sensory function, no focal deficits noted. [] Psychologic: Affect normal, judgement normal, mood normal. [] Current Patient Data: Vital Signs: Vital Signs Date Time Temp Pulse Resp B/P (MAP) Pulse Ox O2 Delivery O2 Flow Rate FiO2 03/23/20 04:27 159 123/81 EKG: EKG: EKG performed at 3:40 AM heart rate 160 A. fib RVR [] Radiology/Procedures: Radiology/Procedures: [] Course & Med Decision Making: Course & Med Decision Making Pertinent Labs and Imaging studies reviewed. (See chart for details) []Treated with cardizem 15mg IVP followed by cardizem drip. Heart rate improved to 90's.-- a fib. Patients BNP >22k CXR - CHF Lasix 40mg ordered Attempted to call Dr Wilcox for admission starting 0530hrs. 0630hrs-- Patient information provided to On coming Dr to inform Dr Wilcox of admission when her returns call. Gael Disclaimer: Gael Disclaimer: This electronic medical record was generated, in whole or in part, using a voice recognition dictation system. Departure Departure Impression: Primary Impression: Atrial fibrillation with RVR Additional Impressions: Head contusion CHF (congestive heart failure) Disposition: 09 ADMITTED INPT THIS HOSP Admitting Physician: Michelle Wilcox Condition: IMPROVED Referrals: MICHELLE WILCOX MD (PCP) VALERIE VILLANUEVA DO Mar 23, 2020 04:37
[2020-03-23 04:39] LABS: CREATININE 1.7 mg/dL (0.7-1.3); GFR 39.4; POTASSIUM 4.6 mmol/L (3.5-5.1)
[2020-03-23 04:44] LABS: BASO # 0.1 x10^3/uL (0.0-0.2); BASO % 1 % (0-3); EOS % 0 % (0-3); HEMATOCRIT 36.8 % (39.0-53.0); HEMOGLOBIN 11.7 g/dL (13.0-17.5); LYMPH # 0.9 x10^3/uL (1.0-4.8); LYMPH % 10 % (24-48); MEAN CORPUSCULAR HEMOGLOBIN 28 pg (25-35); MEAN CORPUSCULAR HGB CONC 32 g/dL (31-37); MEAN CORPUSCULAR VOLUME 87 fL (79-100); MONO # 0.5 x10^3/uL (0.0-1.1); MONO % 6 % (0-9); NEUT # 8.1 x10^3/uL (1.8-7.7); NEUT % 84 % (31-73); PLATELET COUNT 246 x10^3/uL (140-400); RED BLOOD COUNT 4.22 x10^6/uL (4.30-5.70); RED CELL DISTRIBUTION WIDTH 16.6 % (11.5-14.5); WHITE BLOOD COUNT 9.6 x10^3/uL (4.0-11.0)
[2020-03-23 04:45] LABS: ALBUMIN 3.2 g/dL (3.4-5.0); ALBUMIN/GLOBULIN RATIO 0.8 (1.0-1.7); TOTAL BILIRUBIN 2.5 mg/dL (0.2-1.0); TOTAL PROTEIN 7.2 g/dL (6.4-8.2)
--- NOTE | 2020-03-23 04:49 | RAD ---
AP chest. HISTORY: Palpitations AP view was taken of the chest. The heart is enlarged. Pacemaker is unchanged. There is mild vascular congestion. Pattern is similar to the recent studies. There is no definite effusion. IMPRESSION: 1. Cardiomegaly with mild vascular congestion. Electronically signed by: Mor Ivy MD (03/23/2020 4:45 AM) [id number]
[2020-03-23] MEDS ORDERED: IV NORMAL SALINE 1000ML BAG 1,000 ML IV ONE (05:00)
[2020-03-23 05:03] LABS: PROTHROMBIN TIME PATIENT 28.9 SEC (11.7-14.0)
--- NOTE | 2020-03-23 05:16 | RAD ---
CT brain without contrast. HISTORY: Fall CT scan of the brain was done without contrast. There is opacification of the maxillary and sphenoid sinuses. There is mucosal thickening in multiple ethmoid air cells. There is opacification of the frontal sinuses. There is an old lacunar infarct in the right cerebellum unchanged compared to an old study from February 17. There is no intracranial hemorrhage or subdural hematoma. There is mild diffuse atrophy. There is no mass or shift of the midline. Ventricles are normal in size. IMPRESSION: 1. Old right cerebellar lacunar infarct. 2. No intracranial hemorrhage or acute finding noted. 3. Diffuse sinusitis. PQRS Compliance Statement: One or more of the following individualized dose reduction techniques were utilized for this examination: 1. Automated exposure control 2. Adjustment of the mA and/or kV according to patient size 3. Use of iterative reconstruction technique Electronically signed by: Mor Ivy MD (03/23/2020 5:13 AM) [id number]
[2020-03-23] MEDS ORDERED: ONDANSETRON PF 4 MG/2 ML VIAL. IV PRN (05:30)
[2020-03-23] MEDS ORDERED: DILTIAZEM HCL 125 MG in IV NORMAL SALINE 100ML 100 ML IV ONE (06:45)
[2020-03-23] MEDS ORDERED: FUROSEMIDE 40 MG/4 ML VIAL. IVP ONE (06:45)
[2020-03-23] MEDS ORDERED: WARF2TAB96 PO (09:41)
--- NOTE | 2020-03-23 10:00 | NUR ---
Admission: Patient oriented to room. Arrived to unit on . Belongings noted. patient discharged home from [facility] on Tuesday. patient fell at home x2. Wound right foot second toe from amputation. Medication list received from [facility]. DNR. Spoke with Dr. Wilcox (orders received), Dr. Gottlieb rounding for him today. Will continue to closely monitor.
[2020-03-23] MEDS ORDERED: GUAI237L83 PO (10:01)
[2020-03-23] MEDS ORDERED: ASPI-621 PO (10:01)
[2020-03-23] MEDS ORDERED: ACETAMINOPHEN 325 MG TABLET. PO PRN (11:00)
[2020-03-23] MEDS ORDERED: PROCHLORPERAZINE 5 MG TABLET. PO PRN (11:00)
[2020-03-23] MEDS ORDERED: ASA/APAP/CAFFEINE 250/250/65MG TABLET. PO PRN (11:15)
--- NOTE | 2020-03-23 11:42 | HP ---
ADMIT DATE: 03/23/2020 ADMISSION HISTORY AND PHYSICAL CHIEF COMPLAINT AND HISTORY OF PRESENT ILLNESS: This 75-year-old white male patient of Dr. Anjum Wilcox, who was admitted through the Emergency Room. The patient had been at [facility] up until the day prior to admission after amputation of the toe. He has gotten home, felt like he was doing group home decently fell out of bed, was unable to get up for 2 hours and by the time he summoned help and got to the Emergency Room. He was in AFib with a rate of 160. He did bang up the left side of his face and head with the fall. He feels like a black cloud is following him around, he can get ahead of anyway, he tries. He does have a history of AFib in the past. He denies any syncope associated with this and just felt like it was fall out of bed as he fell asleep on the side of the bed. PAST MEDICAL HISTORY: Remarkable for AFib, heart failure, neuropathy, does have a pacemaker. PAST SURGICAL HISTORY: He has had a prior mitral valve replacement. MEDICATIONS: Brought with the patient, listed on the computer and have been addressed. ALLERGIES: He has no known drug allergies. SOCIAL HISTORY: He is a daily current everyday smoker. Denies alcohol or drug use. FAMILY HISTORY: Noncontributory. REVIEW OF SYSTEMS: As mentioned above. PHYSICAL EXAMINATION: GENERAL: He is a well-developed, well-nourished male in no acute distress, lying in bed. VITAL SIGNS: Stable. He is afebrile. HEAD, EYES, EARS, NOSE AND THROAT: Unremarkable except for bruising in lung on the left side of his face, head area. NECK: Supple without adenopathy or thyromegaly. CHEST: Clear to auscultation and percussion. HEART: Irregularly irregular with rate in the 90s. ABDOMEN: Soft, nontender, without hepatosplenomegaly or masses. EXTREMITIES: Without cyanosis, clubbing, no significant edema. He does have venous stasis changes present bilaterally in his lower extremities. NEUROLOGIC: He is intact. LABORATORY DATA: Initial laboratory reveals essentially unremarkable CBC. Chem panel shows creatinine of 1.7 with a BUN of 27. BNP is elevated at 22,013. Troponin was 0.017 on admission and increased overnight to 0.043. Cardiology has been consulted. His INR is 2.7 on admission. IMPRESSION: 1. Fall with head contusion. 2. Atrial fibrillation with a rapid ventricular response. 3. Pacemaker status. 4. Status post mitral valve replacement. PLAN: The patient has been admitted. Cardiology will be consulted. He will be monitored, managed and treated appropriately. FER LANDRY MD DR: QUINTEN/anat JOB#: [id number] / [id number]
[2020-03-23] MEDS: ALLOPURINOL 100 MG TABLET. PO SCH (12:20)
[2020-03-23] MEDS: GABAPENTIN 300 MG CAPSULE. PO SCH ×2 (12:20→21:13)
[2020-03-23] MEDS: PROPRANOLOL ER 60 MG CAP.SA.24H. PO SCH (12:20)
[2020-03-23] MEDS: LACTOBACILLUS RHAMNOSUS GG 1 CAPSULE. PO SCH ×2 (12:20→21:12)
[2020-03-23] MEDS: POTASSIUM CHLORIDE 10 MEQ TABLET.ER. PO SCH (12:20)
[2020-03-23] MEDS: ASCORBIC ACID 500 MG TABLET PO SCH (12:20)
--- NOTE | 2020-03-23 12:21 | PDOC2 ---
CONSULT Date of Consult Date of Consult DATE: 03/23/20 TIME: 12:21 Reason for Consult Reason for Consult: Atrial fibrillation with RVR Referring Physician Referring Physician: Dr. Gottlieb Identification/Chief Complaint Chief Complaint Fall Source Source: Chart review, Patient History of Present Illness Reason for Visit: 75-year-old male with history of permanent atrial fibrillation, SS s/p PPM implantation usually followed by my partner Dr. Jain underwent right second toe amputation for osteomyelitis last month and sent to [facility] for rehabilitation. He was discharged home on Tuesday. Apparently, yesterday he fell out of his bed and hit his head. This morning, he felt dizzy and lightheaded and had near syncopal episode. He denied any loss of consciousness. He complained of generalized weakness and fatigue but denied any chest pain, orthopnea/PND or palpitations. He was found to have atrial fibrillation with RVR prompting cardiology consultation. He was started on Cardizem drip in ED with improvement in his heart rate. Past Medical History Cardiovascular: AFIB, CHF, HTN, Hyperlipidemia, Aortic stenosis, Valve insufficiency Pulmonary: No pertinent hx CENTRAL NERVOUS SYSTEM: Periperal neuropathy Musculoskeletal: Osteoarthritis Renal/: Chronic renal insuff, Benign prostatic enlarg. Past Surgical History Past Surgical History: Pacemaker, Arthroscopy, Hernia Repair, Other Family History Family History: Hypertension Social History ALCOHOL: none Drugs: None Lives: Alone Current Problem List Problem List Problems Medical Problems: (1) Atrial fibrillation with RVR Status: Acute (2) Head contusion Status: Acute Current Medications Current Medications Current Medications Diltiazem HCl (Cardizem Iv Push) 15 mg 1X ONCE IVP Last administered on 03/23/20at 04:27; Start 03/23/20 at 04:30; Stop 03/23/20 at 04:31; Status DC Ondansetron HCl (Zofran) 4 mg 1X ONCE IVP Last administered on 03/23/20at 04:27; Start 03/23/20 at 04:30; Stop 03/23/20 at 04:31; Status DC Sodium Chloride 1,000 ml @ 1,000 mls/hr 1X ONCE IV Last administered on 03/23/20at 05:22; Start 03/23/20 at 05:00; Stop 03/23/20 at 06:00; Status DC Ondansetron HCl (Zofran) 4 mg PRN Q8HRS PRN IV NAUSEA/VOMITING; Start 03/23/20 at 05:30; Stop 03/24/20 at 05:29 Diltiazem HCl 125 mg/Sodium Chloride 125 ml @ 5 mls/hr 1X ONCE IV Last administered on 03/23/20at 07:21; Start 03/23/20 at 06:45; Stop 03/24/20 at 07:44 Furosemide (Lasix) 40 mg 1X ONCE IVP Last administered on 03/23/20at 07:21; Start 03/23/20 at 06:45; Stop 03/23/20 at 06:46; Status DC Prochlorperazine Maleate (Compazine) 2.5 mg PRN Q6HRS PRN PO NAUSEA/VOMITING; Start 03/23/20 at 11:00 Acetaminophen (Tylenol) 650 mg PRN Q6HRS PRN PO MILD PAIN / TEMP > 100.3'F; Start 03/23/20 at 11:00 Allopurinol (Zyloprim) 100 mg DAILY PO ; Start 03/23/20 at 12:00 Ascorbic Acid (Vitamin C) 500 mg DAILY PO ; Start 03/23/20 at 12:00 Acetaminophen/ Aspirin/Caffeine (Excedrin Migraine) 1 tab PRN Q6HRS PRN PO MIGRAINE HEADACHE; Start 03/23/20 at 11:15 Atorvastatin Calcium (Lipitor) 20 mg QHS PO ; Start 03/23/20 at 21:00 Digoxin (Lanoxin) 125 mcg QODAY PO ; Start 03/24/20 at 09:00 Diltiazem HCl (Cardizem 24hr Cd) 120 mg DAILY PO ; Start 03/23/20 at 12:00 Gabapentin (Neurontin) 900 mg BID PO ; Start 03/23/20 at 12:00 Acetaminophen/ Hydrocodone Bitart (Lortab 5/325) 1 tab PRN Q6HRS PRN PO PAIN; Start 03/23/20 at 11:15 Lactobacillus Rhamnosus (Culturelle) 1 cap BID PO ; Start 03/23/20 at 12:00 Potassium Chloride (Klor-Con) 10 meq DAILY08 PO ; Start 03/23/20 at 12:00 Propranolol HCl (Inderal La) 60 mg DAILY PO ; Start 03/23/20 at 12:00 Tizanidine HCl (Zanaflex) 8 mg QHS PO ; Start 03/23/20 at 21:00 Warfarin Sodium (Coumadin) 2 mg DAILY16 PO ; Start 03/23/20 at 16:00 Warfarin Sodium (Coumadin Per Physician) 1 each PRN DAILY PRN MC SEE COMMENTS; Start 03/23/20 at 11:30 Active Scripts Active Vitamin C (Ascorbic Acid) 500 Mg Tablet 500 Mg PO DAILY 30 Days Culturelle (Lactobacillus Rhamnosus Gg) 1 Each Cap.sprink 1 Cap PO BID 30 Days Atorvastatin Calcium 20 Mg Tablet 20 Mg PO QHS 30 Days Hydrocodone-Apap 5-325 (Hydrocodone Bit/Acetaminophen) 1 Each Tablet 1 Tab PO PRN Q6HRS PRN Be careful as this medication may cause you to be drowsy or tired. Do not drive on this medication. Reported Robitussin Cough-Chest Dm Liq (Guaifenesin/Dextromethorphan) 237 Ml Liquid 10 Ml PO Q4HRS PRN Excedrin Extra Strength Caplet (Aspirin/Acetaminophen/Caffeine) 1 Each Tablet 1 Each PO Q6HRS PRN Warfarin Sodium 2 Mg Tablet 2 Mg PO DAILY Allopurinol 100 Mg Tablet 1 Tab PO DAILY MDD 100 MG Iron (Ferrous Gluconate) 236 Mg Tablet 1 Tab PO QODAY 30 Days Tizanidine Hcl 4 Mg Tablet 2 Tab PO QHS Klor-Con 10 (Potassium Chloride) 10 Meq Tablet.er 1 Tab PO DAILY 30 Days Cartia Xt (Diltiazem Hcl) 120 Mg Cap.er.24h 1 Cap PO DAILY 30 Days Centrum Silver Tablet (Multivits-Min/Fa/Lycopene/Lut) 1 Each Tablet 1 Each PO DAILY Lutein 6 Mg Tablet 6 Mg PO DAILY Doxazosin Mesylate 2 Mg Tablet 2 Mg PO DAILY Propranolol Hcl 60 Mg Cap.sa.24h 60 Mg PO DAILY Digoxin 125 Mcg Tablet 125 Mcg PO QODAY Gabapentin 300 Mg Capsule 900 Mg PO BID neurapathy in feet and hands Allergies Allergies: Coded Allergies: No Known Drug Allergies (Unverified , 05/19/16) ROS General: YES: Fatigue PSYCHOLOGICAL ROS: No: Hallucinations Eyes: No Loss of vision HEENT: No: Epistaxis Respiratory: No: Hemoptysis, Shortness of breath Cardiovascular: No Chest Pain, No Palpitations Gastrointestinal: No Vomiting, No Diarrhea Genitourinary: No Hematuria Neurological: No Seizures Physical Exam General: Alert, No acute distress HEENT: Other (Ecchymosis left side of face) Lungs: Clear to auscultation Heart: Other (Heart rate irregular, pansystolic murmur 2/6 apex) Abdomen: Soft Extremities: Other (1+ edema with discoloration suspicious for venous insufficiency) Psych/Mental Status: Mood NL Vitals VITALS Vital Signs Date Time Temp Pulse Resp B/P (MAP) Pulse Ox O2 Delivery O2 Flow Rate FiO2 03/23/20 11:14 97.3 89 20 154/70 (98) 90 Nasal Cannula 2.0 97.3 Labs Labs Laboratory Tests Test 03/23/20 04:17 03/23/20 08:20 03/23/20 11:10 White Blood Count 9.6 x10^3/uL (4.0-11.0) Red Blood Count 4.22 x10^6/uL (4.30-5.70) Hemoglobin 11.7 g/dL (13.0-17.5) Hematocrit 36.8 % (39.0-53.0) Mean Corpuscular Volume 87 fL (79-100) Mean Corpuscular Hemoglobin 28 pg (25-35) Mean Corpuscular Hemoglobin Concent 32 g/dL (31-37) Red Cell Distribution Width 16.6 % (11.5-14.5) Platelet Count 246 x10^3/uL (140-400) Neutrophils (%) (Auto) 84 % (31-73) Lymphocytes (%) (Auto) 10 % (24-48) Monocytes (%) (Auto) 6 % (0-9) Eosinophils (%) (Auto) 0 % (0-3) Basophils (%) (Auto) 1 % (0-3) Neutrophils # (Auto) 8.1 x10^3/uL (1.8-7.7) Lymphocytes # (Auto) 0.9 x10^3/uL (1.0-4.8) Monocytes # (Auto) 0.5 x10^3/uL (0.0-1.1) Eosinophils # (Auto) 0.0 x10^3/uL (0.0-0.7) Basophils # (Auto) 0.1 x10^3/uL (0.0-0.2) Prothrombin Time 28.9 SEC (11.7-14.0) Prothromb Time International Ratio 2.7 (0.8-1.1) Activated Partial Thromboplast Time 41 SEC (24-38) Sodium Level 141 mmol/L (136-145) Potassium Level 4.6 mmol/L (3.5-5.1) Chloride Level 104 mmol/L (98-107) Carbon Dioxide Level 22 mmol/L (21-32) Anion Gap 15 (6-14) Blood Urea Nitrogen 27 mg/dL (8-26) Creatinine 1.7 mg/dL (0.7-1.3) Estimated GFR (Cockcroft-Gault) 39.4 BUN/Creatinine Ratio 16 (6-20) Glucose Level 156 mg/dL (70-99) Calcium Level 9.0 mg/dL (8.5-10.1) Total Bilirubin 2.5 mg/dL (0.2-1.0) Aspartate Amino Transf (AST/SGOT) 36 U/L (15-37) Alanine Aminotransferase (ALT/SGPT) 21 U/L (16-63) Alkaline Phosphatase 106 U/L (46-116) Creatine Kinase 81 U/L (39-308) Troponin I Quantitative 0.017 ng/mL (0.000-0.055) 0.043 ng/mL (0.000-0.055) 0.040 ng/mL (0.000-0.055) ZZ-Zoo-A-Type Natriuretic Peptide 62331 pg/mL (0-449) Total Protein 7.2 g/dL (6.4-8.2) Albumin 3.2 g/dL (3.4-5.0) Albumin/Globulin Ratio 0.8 (1.0-1.7) Laboratory Tests Test 03/23/20 04:17 03/23/20 08:20 03/23/20 11:10 White Blood Count 9.6 x10^3/uL (4.0-11.0) Red Blood Count 4.22 x10^6/uL (4.30-5.70) Hemoglobin 11.7 g/dL (13.0-17.5) Hematocrit 36.8 % (39.0-53.0) Mean Corpuscular Volume 87 fL (79-100) Mean Corpuscular Hemoglobin 28 pg (25-35) Mean Corpuscular Hemoglobin Concent 32 g/dL (31-37) Red Cell Distribution Width 16.6 % (11.5-14.5) Platelet Count 246 x10^3/uL (140-400) Neutrophils (%) (Auto) 84 % (31-73) Lymphocytes (%) (Auto) 10 % (24-48) Monocytes (%) (Auto) 6 % (0-9) Eosinophils (%) (Auto) 0 % (0-3) Basophils (%) (Auto) 1 % (0-3) Neutrophils # (Auto) 8.1 x10^3/uL (1.8-7.7) Lymphocytes # (Auto) 0.9 x10^3/uL (1.0-4.8) Monocytes # (Auto) 0.5 x10^3/uL (0.0-1.1) Eosinophils # (Auto) 0.0 x10^3/uL (0.0-0.7) Basophils # (Auto) 0.1 x10^3/uL (0.0-0.2) Prothrombin Time 28.9 SEC (11.7-14.0) Prothromb Time International Ratio 2.7 (0.8-1.1) Activated Partial Thromboplast Time 41 SEC (24-38) Sodium Level 141 mmol/L (136-145) Potassium Level 4.6 mmol/L (3.5-5.1) Chloride Level 104 mmol/L (98-107) Carbon Dioxide Level 22 mmol/L (21-32) Anion Gap 15 (6-14) Blood Urea Nitrogen 27 mg/dL (8-26) Creatinine 1.7 mg/dL (0.7-1.3) Estimated GFR (Cockcroft-Gault) 39.4 BUN/Creatinine Ratio 16 (6-20) Glucose Level 156 mg/dL (70-99) Calcium Level 9.0 mg/dL (8.5-10.1) Total Bilirubin 2.5 mg/dL (0.2-1.0) Aspartate Amino Transf (AST/SGOT) 36 U/L (15-37) Alanine Aminotransferase (ALT/SGPT) 21 U/L (16-63) Alkaline Phosphatase 106 U/L (46-116) Creatine Kinase 81 U/L (39-308) Troponin I Quantitative 0.017 ng/mL (0.000-0.055) 0.043 ng/mL (0.000-0.055) 0.040 ng/mL (0.000-0.055) HN-Rbu-D-Type Natriuretic Peptide 97458 pg/mL (0-449) Total Protein 7.2 g/dL (6.4-8.2) Albumin 3.2 g/dL (3.4-5.0) Albumin/Globulin Ratio 0.8 (1.0-1.7) Images Images ECHOCARDIOGRAM <Conclusion> The left ventricular systolic function is normal and the ejection fraction is within normal range. The Ejection Fraction is 55-60%. Wall motion consistent with pacemaker activation. Transmitral Doppler flow pattern is Grade III-reversible restrictive diastolic dysfunction. There is a catheter in the right ventricle. The left atrium is severely dilated. Doppler and Color Flow revealed mild to moderate aortic regurgitation. There is probable moderate aortic stenosis, doppler signal may artifactually be elevated with a MG of 50 mm Hg. Doppler and Color-flow revealed severe mitral regurgitation. Doppler and Color Flow revealed mild tricuspid regurgitation with an estimated PAP of 71mmHg. Consider SOLA for further evaluation. DATE: 01/14/20 1437 TRANSESOPHAGEAL ECHOCARDIOGRAM The left ventricle is normal size. Left ventricular size is normal. Left ventricular systolic function is normal and the ejection fraction is within normal range. There is a pacemaker lead in the right ventricle. The left atrium is severely dilated. Injection of bubbles is not conclusive due severely enlarged left atrium causing high left atrial pressures. Spontaneous contrast is seen in the left atrial appendage. Doppler and Color Flow revealed mild aortic regurgitation. There is no significant aortic valvular stenosis. The anterior leaflet is pliable and mobile while the posterior leaflet is calcified and immobile. No significant stenosis is present. Doppler and Color-flow revealed severe very eccentric mitral regurgitation. Doppler and Color Flow revealed mild tricuspid regurgitation. Signed by : Sudhakar Jain MD Electronically Approved : 02/21/2020 11:59:46 Assessment/Plan Assessment/Plan 1. s/p Fall with head contusion. CT scan of the head did not show any acute intracranial process. Patient denied any loss of consciousness. 2. Permanent atrial fibrillation with RVR, presently rate controlled with Cardizem drip. Change this to PO. Continue warfarin for stroke prophylaxis. INR therapeutic. 3. Acute on chronic diastolic heart failure based on elevated BNP and chest x- ray findings. Diurese gently with Lasix with close monitoring of BUN/creatinine. Recent 2D echo showed LVEF 55 to 60%. 4. SSS s/p PPM (VVIR). We will have his pacemaker interrogated. 5. Valvular heart disease: History of mitral valve repair. Recent 2D echo and SOLA showed moderate aortic stenosis and severe eccentric mitral regurgitation with severe secondary pulmonary hypertension. Patient declined any further interventions last hospital admission. 6. Hypertension: Continue current medical regimen 7. Hyperlipidemia: Continue statin therapy Thank you for your consultation REY ESPINOZA MD Mar 23, 2020 12:21
[2020-03-23] MEDS: HYDROcodone/APAP 5/325MG 1 TAB TABLET PO PRN (14:01)
--- NOTE | 2020-03-23 16:00 | NUR ---
Pacemaker Interrogation: Spoke with Collette from [facility] pacemaker [phone]. Requested pacemaker interrogation. Received call back from Maikel, will see patient tomorrow.
[2020-03-23] MEDS: WARFARIN 2 MG TABLET. PO SCH (16:39)
[2020-03-23] MEDS ORDERED: tiZANidine 4 MG TABLET. PO SCH (21:00)
[2020-03-23] MEDS: ATORVASTATIN CALCIUM 20 MG TABLET PO SCH (21:12)
[2020-03-24 03:32] VITALS: BP 132/52
[2020-03-24 06:05] LABS: PROTHROMBIN TIME PATIENT 23.8 SEC (11.7-14.0)
[2020-03-24 07:17] VITALS: BP 113/44
[2020-03-24] MEDS: POTASSIUM CHLORIDE 10 MEQ TABLET.ER. PO SCH (08:00)
--- NOTE | 2020-03-24 08:40 | PDOC ---
SUBJECTIVE Subjective Doing well this AM, no concerns. Failed d/c home after stay at for rehab after recent hospitalization (and readmit) for 2nd toe osteomyelitis. He states he fell off the side of the bed d/t falling asleep after taking his tizanidine. OBJECTIVE Objective Reviewed. Vital Signs Vital Signs Date Time Temp Pulse Resp B/P (MAP) Pulse Ox O2 Delivery O2 Flow Rate FiO2 03/24/20 07:17 98.2 57 16 113/44 (67) 95 Nasal Cannula 2.0 98.2 03/24/20 03:32 97.4 54 16 132/52 (78) 94 Nasal Cannula 2.0 97.4 03/23/20 22:43 97.4 56 16 116/71 (86) 91 Nasal Cannula 2.0 97.4 03/23/20 20:00 Nasal Cannula 2.0 03/23/20 19:23 97.6 67 16 135/59 (84) 94 Nasal Cannula 2.0 97.6 03/23/20 16:39 80 03/23/20 15:00 98.7 82 20 131/63 (85) 90 Room Air 98.7 03/23/20 13:38 80 144/72 (96) 03/23/20 12:21 90 03/23/20 12:20 90 03/23/20 11:14 97.3 89 20 154/70 (98) 90 Nasal Cannula 2.0 97.3 03/23/20 09:45 Nasal Cannula 2.0 03/23/20 09:42 85 148/52 (84) I & O Intake and Output 03/24/20 07:00 Intake Total 690 ml Output Total 975 ml Balance -285 ml Intake Oral 690 ml Output Urine Total 975 ml # Voids 1 # Bowel Movements 3 PHYSICAL EXAM Physical Exam Alert, oriented Irregularly irregular rhythm CTAB Calm, cooperative ASSESSMENT/PLAN Assessment/Plan Permanent Afib w/ RVR, rate controlled, now bradycardic s/p Fall with head contusion, neg CT Acute on chronic diastolic heart failure SSS s/p pacer, will have interrogated today Valvular heart disease: History of mitral valve repair. Recent echo showed moderate aortic stenosis and severe eccentric mitral regurgitation with severe secondary pulmonary hypertension. Patient declined any further interventions previously. HTN HLD RLS Fall risk PT/OT eval Cards following Discussed adjusting meds that could lead to sedation, pt agreed to decrease tizanidine by 1/2 as trial, if still having issues with falling asleep quickly, could discuss other options for RLS COMMENT Lab Laboratory Tests Test 03/23/20 11:10 03/24/20 04:40 Troponin I Quantitative 0.040 ng/mL (0.000-0.055) Prothrombin Time 23.8 SEC (11.7-14.0) Prothromb Time International Ratio 2.1 (0.8-1.1) Justifications for Admission Other Justification [facility],LEONOR Waterman MD Mar 24, 2020 08:40
[2020-03-24] MEDS: GABAPENTIN 300 MG CAPSULE. PO SCH ×2 (08:41→20:13)
[2020-03-24] MEDS: ALLOPURINOL 100 MG TABLET. PO SCH (08:41)
[2020-03-24] MEDS: PROPRANOLOL ER 60 MG CAP.SA.24H. PO SCH (08:42)
[2020-03-24] MEDS: LACTOBACILLUS RHAMNOSUS GG 1 CAPSULE. PO SCH ×2 (08:43→20:13)
[2020-03-24] MEDS: ASCORBIC ACID 500 MG TABLET PO SCH (08:43)
[2020-03-24] MEDS ORDERED: DIGOXIN 125 MCG TABLET. PO SCH (09:00)
[2020-03-24] MEDS ORDERED: tiZANidine 4 MG TABLET. PO PRN (09:15)
[2020-03-24 10:33] VITALS: BP 132/51
[2020-03-24 14:31] VITALS: BP 121/51
--- NOTE | 2020-03-24 14:46 | PDOC ---
SHAWNEE BROOKS CONTAINER REPAIRER 03/24/20 1446: CARDIO Progress Notes Date and Time Date of Service 03/24/20 Time of Evaluation 1205 Subjective Subjective: No Chest Pain, No shortness of breath, No Palpitations Vitals Vitals Vital Signs Date Time Temp Pulse Resp B/P (MAP) Pulse Ox O2 Delivery O2 Flow Rate FiO2 03/24/20 14:31 98.0 70 22 121/51 (74) 94 Nasal Cannula 2.0 98.0 Weight Weight [ ] Input and Output Intake and Output Intake and Output 03/24/20 06:59 Intake Total 690 ml Output Total 975 ml Balance -285 ml Intake Oral 690 ml Output Urine Total 975 ml # Voids 1 # Bowel Movements 3 Laboratory Labs Laboratory Tests Test 03/24/20 04:40 Prothrombin Time 23.8 SEC (11.7-14.0) Prothromb Time International Ratio 2.1 (0.8-1.1) Physical Exam HEENT: Neck Supple W Full Motion, Other (left facial ecchymosis ) Chest: Symmetric LUNGS: Clear to Auscultation Heart: irregularly irregular (rate controlled) Abdomen: Soft N/T Extremities: Other (trace bilateral LE edema ) Neurology: alert, oriented, follow commands Assessment Assessment 1. Syncope, fall with head contusion, multifactorial CT of the head without acute findings. Ortho's negative. Patient now reporting he passed out following BM. ? vasovagal. 2. Permanent atrial fibrillation with RVR, rate controlled with Cardizem. BP low end with Cardizem 240mg, which patient is concerned with. 3. Acute on chronic diastolic heart failure based on elevated BNP and chest x- ray findings. Diurese gently with Lasix with close monitoring of BUN/creatinine. Recent 2D echo showed LVEF 55 to 60%. 4. SSS s/p PPM (VVIR). Device interrogation with normal function. Episode of RVR were noted. 5. Valvular heart disease; s/p mitral valve repair. Recent 2D echo and SOLA showed moderate , severe MR with severe secondary pulmonary hypertension. Patient declines any further interventions 6. Hypertension: Continue current medical regimen 7. Hyperlipidemia: Continue statin therapy 8. Secondary severe pulmonary HTN 9. Chronic diastolic CHF: compensated 10. CKD Recommendations Continue digoxin for rate control Will decrease Cardizem to 180mg Lasix PRN Continue warfarin for stroke prevention. Treat MR medically as pt has expressed in the past of no further surgery Justicifation of Admission Dx: Justifications for Admission: Justification of Admission Dx: Yes CHF: Cardiac Arrhythmias Angina: Symp at Rest REY ESPINOZA MD 03/24/20 2006: CARDIO Progress Notes Assessment Assessment Patient seen and examined. Agree with COMMERCIAL REPORTER's assessment and plan. Atrial fib rate better controlled Agree with decreasing cardizem dose secondary to marginal BP Ac on chr diastolic HF better compensated Option of Mitraclip procedure referral for severe MR discussed again - currently more amenable but would like to consider as outpatient PPM interrogation normal SHAWNEE BROOKS APRN Mar 24, 2020 14:46 REY ESPINOZA MD Mar 24, 2020 20:06
[2020-03-24] MEDS ORDERED: dilTIAZem HCL 30 MG TABLET PO ONE (15:00)
--- NOTE | 2020-03-24 15:08 | NUR ---
SS following for discharge planning. SS reviewed pt chart and discussed with pt RN. Pt is from home and is currently room air. Pt was recently discharged from [facility] on 03/21/2020 with [facility], ; fax [phone]. PT/OT recommended snf unit. SS met with pt to discuss discharge planning and snf unit. Pt declined snf unit stating that he would not go back to skilled rehabilitation. Pt reported that he would be agreeable to home healthcare. SS will continue to follow for discharge planning .
--- NOTE | 2020-03-24 16:24 | NUR ---
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 Wound is red granulation and slough covered. Treatment Recommendations/Plan: Cleansed wound, applied hydrofera blue and foam. Recommend to change every 3 days. Education provided: PU prevention and WC POC Offloading surface/device: none Recommended Referrals/Tests: none Discharge Recommendations for dressings: Continue with hydrofera blue and foam Q3D
[2020-03-24] MEDS: WARFARIN 2 MG TABLET. PO SCH (16:43)
--- NOTE | 2020-03-24 16:59 | NUR ---
Have reviewed and agree with documentation completed by sports broadcasting internship and made changes as needed/appropriate.
[2020-03-24 19:40] VITALS: BP 154/61
[2020-03-24] MEDS: ATORVASTATIN CALCIUM 20 MG TABLET PO SCH (20:13)
[2020-03-24 23:52] VITALS: BP 135/66
[2020-03-25] MEDS ORDERED: MAG HYDROX/ALUMINUM HYD/SIMETH 30 ML ORAL.SUSP PO PRN (02:15)
[2020-03-25 02:22] VITALS: BP 127/66
[2020-03-25 07:00] VITALS: BP 137/65
[2020-03-25] MEDS: ALLOPURINOL 100 MG TABLET. PO SCH (08:27)
[2020-03-25] MEDS: ASCORBIC ACID 500 MG TABLET PO SCH (08:27)
[2020-03-25] MEDS: LACTOBACILLUS RHAMNOSUS GG 1 CAPSULE. PO SCH (08:27)
[2020-03-25] MEDS: POTASSIUM CHLORIDE 10 MEQ TABLET.ER. PO SCH (08:28)
[2020-03-25] MEDS: GABAPENTIN 300 MG CAPSULE. PO SCH (08:28)
[2020-03-25] MEDS: PROPRANOLOL ER 60 MG CAP.SA.24H. PO SCH (08:28)
[2020-03-25] MEDS: HYDROcodone/APAP 5/325MG 1 TAB TABLET PO PRN (08:29)
[2020-03-25] MEDS ORDERED: DILT180C29 PO (08:34)
[2020-03-25] MEDS ORDERED: TIZA4TAB2 PO (08:36)
--- NOTE | 2020-03-25 08:36 | PDOC3 ---
Discharge Summary Date of Admission: Mar 23, 2020 Date of Discharge: Mar 25, 2020 Follow-Up: 3-5 days Admitting Diagnosis comment: Fall at home Afib with RVR FINAL DIAGNOSIS Problems Medical Problems: (1) Atrial fibrillation with RVR Status: Acute (2) CHF (congestive heart failure) Status: Acute (3) Head contusion Status: Acute Brief Hospital Course Mr. Zafar is a 75-year-old male with a past medical history of permanent A. fib, diastolic congestive heart failure, SSS s/p pacer, history of mitral valve repair, severe eccentric mitral regurgitation, moderate aortic stenosis and severe secondary pulmonary hypertension per a recent Echo, HTN, HLD, RLS, who was admitted after a fall at home. In the emergency room he was found to be in A. fib with RVR. His medications were adjusted and he will continue diltiazem and digoxin at current doses. His pacemaker was interrogated and was found to be normal. He believes that he fell after he fell asleep while sitting on the side of the bed after taking his nightly tizanidine. He reports that he takes this medication to help both with muscle spasms and with restless leg syndrome. He is agreeable to decreasing the tizanidine dose to decrease his risk for falls and sedation. Physical therapy and Occupational Therapy recommended nursing home facility placement, however the patient has refused this. As he was recently discharged from [facility] after a previous admission, he already has home health services set up. He is agreeable to this. He will follow up in the office within the next 3 to 5 days to ensure that he is doing well at home. CONDITION AT DISCHARGE: Improved, Stable Discharge Medications Active Scripts Active Atorvastatin Calcium 20 Mg Tablet 20 Mg PO QHS 30 Days Hydrocodone-Apap 5-325 (Hydrocodone Bit/Acetaminophen) 1 Each Tablet 1 Tab PO PRN Q6HRS PRN Be careful as this medication may cause you to be drowsy or tired. Do not drive on this medication. Reported Warfarin Sodium 2 Mg Tablet 2 Mg PO DAILY Allopurinol 100 Mg Tablet 1 Tab PO DAILY MDD 100 MG Iron (Ferrous Gluconate) 236 Mg Tablet 1 Tab PO QODAY 30 Days Tizanidine Hcl 4 Mg Tablet 1 Tab PO QHS Klor-Con 10 (Potassium Chloride) 10 Meq Tablet.er 1 Tab PO DAILY 30 Days Cartia Xt (Diltiazem Hcl) 180 Mg Cap.er.24h 1 Cap PO DAILY 30 Days Centrum Silver Tablet (Multivits-Min/Fa/Lycopene/Lut) 1 Each Tablet 1 Each PO DAILY Lutein 6 Mg Tablet 6 Mg PO DAILY Doxazosin Mesylate 2 Mg Tablet 2 Mg PO DAILY Propranolol Hcl 60 Mg Cap.sa.24h 60 Mg PO DAILY Digoxin 125 Mcg Tablet 125 Mcg PO QODAY Gabapentin 300 Mg Capsule 900 Mg PO BID neurapathy in feet and hands Vital Signs Vital Signs Date Time Temp Pulse Resp B/P (MAP) Pulse Ox O2 Delivery O2 Flow Rate FiO2 03/25/20 02:22 97.5 62 18 127/66 (86) 91 Nasal Cannula 2.0 97.5 Labs Laboratory Tests Test 03/23/20 11:10 03/24/20 04:40 Troponin I Quantitative 0.040 ng/mL (0.000-0.055) Prothrombin Time 23.8 SEC (11.7-14.0) Prothromb Time International Ratio 2.1 (0.8-1.1) Allergies Allergies Coded Allergies Type Severity Reaction Last Updated Verified No Known Drug Allergies 05/19/16 No Disposition/Orders: D/C to Home w/ HH Justicifation of Admission Dx: Justifications for Admission: Justification of Admission Dx: Yes CHF: Cardiac Arrhythmias Angina: Symp at Rest LEONOR ESTRADA MD Mar 25, 2020 08:36
--- NOTE | 2020-03-25 08:38 | SNU/HH DC ---
DISCHARGE WITH HOME HEALTH DISCHARGE INFORMATION: Final Diagnosis: Problems Medical Problems: (1) Atrial fibrillation with RVR Status: Acute (2) CHF (congestive heart failure) Status: Acute (3) Head contusion Status: Acute Condition on Discharge: Stable CODE STATUS: Code Status: DNR/DNI HOME HEALTH: Face to Face: I certify this patient is under my care and that I had a face to face encounter that meets the physician face to face encounter requirements with this patient on []. Medical Complications: CHF, Falls RN For Eval/Treatment: Yes Physical Therapy For: Evalulation/Treatment Occupational Therapy For: Evaluation/Treatment Pt Meets Homebound Status: Poor coordination w/ amb., Frequent falls w/ injury POST DISCHARGE ORDERS: Activity Instructions for Disc: Activity as tolerated, Avoid exertion Weight Bearing Status after Di: No restrictions DIET AFTER DISCHARGE: Cardiac Wound/Incision Care: Ice to area for comfort CHECKS AFTER DISCHARGE: Checks after discharge: Check blood press - daily, Weigh Yourself Daily TREATMENT/EQUIPMENT ORDERS: Adaptive Equipment Issued: None CERTIFICATION STATEMENT: Certification Statement: Certification Statement: Based on the above finding, I certify that this patient is confined to the home and needs intermittent correction care, physical therapy and/or speech therapy, or continues to need occupational therapy.~ This patient is under my care, and I have initiated the establishment of the plan of care.~ This patient will be followed by myself or a community physician who will periodically review the plan of care. Home Meds Active Scripts Tizanidine Hcl (TIZANIDINE HCL) 4 Mg Tablet, 4 MG PO QHS PRN for MUSCLE SPASMS, RLS, sleep for 30 Days, #30 TAB 1 Refill Prov:LEONOR ESTRADA MD 03/25/20 Diltiazem Hcl (DILTIAZEM 24HR CD) 180 Mg Cap.er.24h, 180 MG PO DAILY for afib for 30 Days, #30 CAP.SR 2 Refills Prov:LEONOR ESTRADA MD 03/25/20 Ascorbic Acid (VITAMIN C) 500 Mg Tablet, 500 MG PO DAILY for wound healing for 30 Days, #30 TAB 0 Refills Prov:LEONOR ESTRADA MD 02/27/20 Lactobacillus Rhamnosus Gg (CULTURELLE) 1 Each Cap.sprink, 1 CAP PO BID for probiotic for 30 Days, #60 CAP 2 Refills Prov:LEONOR ESTRADA MD 02/27/20 Atorvastatin Calcium (ATORVASTATIN CALCIUM) 20 Mg Tablet, 20 MG PO QHS for cholesterol for 30 Days, #30 TAB 3 Refills Prov:LEONOR ESTRADA MD 02/27/20 Hydrocodone Bit/Acetaminophen (HYDROCODONE-APAP 5-325 ) 1 Each Tablet, 1 TAB PO PRN Q6HRS PRN for PAIN, #10 TAB 0 Refills Be careful as this medication may cause you to be drowsy or tired. Do not drive on this medication. Prov:ELINOR TENA MD 03/17/17 Reported Medications Guaifenesin/Dextromethorphan (Robitussin Cough-Chest Dm Liq) 237 Ml Liquid, 10 ML PO Q4HRS PRN for COUGH, LIQUID 03/23/20 Aspirin/Acetaminophen/Caffeine (EXCEDRIN EXTRA STRENGTH CAPLET) 1 Each Tablet, 1 EACH PO Q6HRS PRN for HEADACHE, TAB 03/23/20 Warfarin Sodium (WARFARIN SODIUM) 2 Mg Tablet, 2 MG PO DAILY for heart, #30 TAB 03/23/20 Allopurinol (ALLOPURINOL) 100 Mg Tablet, 1 TAB PO DAILY for GOUT MDD 100 MG 02/19/20 Ferrous Gluconate (IRON) 236 Mg Tablet, 1 TAB PO QODAY for kidney disease for 30 Days, #30 TAB 0 Refills 02/18/20 Potassium Chloride (KLOR-CON 10) 10 Meq Tablet.er, 1 TAB PO DAILY for replacment for 30 Days, #30 TAB 0 Refills 02/18/20 Multivits-Min/Fa/Lycopene/Lut (CENTRUM SILVER TABLET) 1 Each Tablet, 1 EACH PO DAILY 05/28/16 Lutein (LUTEIN) 6 Mg Tablet, 6 MG PO DAILY 05/28/16 Doxazosin Mesylate (DOXAZOSIN MESYLATE) 2 Mg Tablet, 2 MG PO DAILY 11/11/15 Propranolol Hcl (PROPRANOLOL HCL) 60 Mg Cap.sa.24h, 60 MG PO DAILY, #30 11/11/15 Digoxin (DIGOXIN) 125 Mcg Tablet, 125 MCG PO QODAY, #30 11/11/15 Gabapentin (GABAPENTIN) 300 Mg Capsule, 900 MG PO BID for pain, #3 neurapathy in feet and hands 11/11/15 Discontinued Reported Medications Tizanidine Hcl (TIZANIDINE HCL) 4 Mg Tablet, 2 TAB PO QHS for restless legs, #30 TAB 02/18/20 Diltiazem Hcl (CARTIA XT) 120 Mg Cap.er.24h, 1 CAP PO DAILY for heart for 30 Days, #30 CAP 0 Refills 02/18/20 LEONOR ESTRADA MD Mar 25, 2020 08:38
[2020-03-25] MEDS ORDERED: MULTIVITAMIN with MINERAL TABLET. PO SCH (09:00)
[2020-03-25 10:58] VITALS: BP 123/58
--- NOTE | 2020-03-25 13:13 | NUR ---
SS following up with discharge planning. SS reviewed pt chart and discussed with pt RN. Pt is currently requiring oxygen. Six minute walk ordered. Pt declining nursing home unit. Discharge orders received for home healthcare services. Pt was previously on services with [facility], ; fax [phone]. SS phoned and faxed discharge orders and referral to [facility]. SS will continue to follow for discharge planning.
--- NOTE | 2020-03-25 15:10 | PDOC ---
PROGRESS NOTES Date of Service: DATE: 03/25/20 TIME: 15:09 Subjective Subjective Feeling better today Objective Objective Vital Signs Date Time Temp Pulse Resp B/P (MAP) Pulse Ox O2 Delivery O2 Flow Rate FiO2 03/25/20 10:58 97.8 83 16 123/58 (79) 91 Nasal Cannula 2.0 97.8 Intake and Output 03/25/20 07:00 Intake Total 1020 ml Output Total 300 ml Balance 720 ml Intake Oral 1020 ml Output Urine Total 300 ml # Voids 1 # Bowel Movements 1 Physical Exam Abdomen: Soft Heart: Other (Heart rate irregular, pansystolic murmur 2/6 apex) Extremities: Other (1+ edema with discoloration suspicious for venous insufficiency) General: Alert, No acute distress HEENT: Other (Ecchymosis left side of face) Lungs: Clear to auscultation MUSCULOSKELETAL: Osteoarthritic changes both hands Psych/Mental Status: Mood NL Assessment Assessment 1. s/p Fall with head contusion. CT scan of the head did not show any acute intracranial process. Patient denied any loss of consciousness. 2. Permanent atrial fibrillation with RVR, presently better controlled. Continue warfarin for stroke prophylaxis. 3. Acute on chronic diastolic heart failure based on elevated BNP and chest x- ray findings. Better compensated with diuresis. Recent 2D echo showed LVEF 55 to 60%. 4. SSS s/p PPM (VVIR). Stable 5. Valvular heart disease: History of mitral valve repair. Recent 2D echo and SOLA showed moderate aortic stenosis and severe eccentric mitral regurgitation with severe secondary pulmonary hypertension. Patient declined any further interventions last hospital admission but currently more amenable - would like to address this as outpatient. 6. Hypertension: Continue current medical regimen 7. Hyperlipidemia: Continue statin therapy Plan Plan of Care Problems Medical Problems: (1) Atrial fibrillation with RVR Status: Acute (2) CHF (congestive heart failure) Status: Acute (3) Head contusion Status: Acute Comment Review of Relevant I have reviewed the following items devorah (where applicable) has been applied. Medications Current Medications Al Hydroxide/Mg Hydroxide (Mylanta Plus Xs) 30 ml PRN Q6HRS PRN PO HEARTBURN / GAS Last administered on 03/25/20at 02:07; Start 03/25/20 at 02:15 Diltiazem HCl (Cardizem 24hr Cd) 120 mg DAILY PO ; Start 03/25/20 at 09:00 Diltiazem HCl (Cardizem 24hr Cd) 180 mg DAILY PO Last administered on 03/25/20at 08:28; Start 03/25/20 at 09:00 Multivitamins (Thera M Plus) 1 tab DAILY PO Last administered on 03/25/20at 08:28; Start 03/25/20 at 09:00 Vitals/I & O Vital Sign - Last 24 Hours 03/24/20 03/24/20 03/24/20 03/24/20 16:44 19:40 19:42 23:52 Temp 98.7 97.5 98.7 97.5 Pulse 70 83 86 Resp 16 16 B/P (MAP) 121/51 154/61 (92) 135/66 (89) Pulse Ox 91 96 O2 Delivery Nasal Cannula Room Air Nasal Cannula O2 Flow Rate 2.0 2.0 03/25/20 03/25/20 03/25/20 03/25/20 02:22 07:00 08:00 08:28 Temp 97.5 97.6 97.5 97.6 Pulse 62 85 62 Resp 18 18 B/P (MAP) 127/66 (86) 137/65 (89) 127/66 Pulse Ox 91 92 O2 Delivery Nasal Cannula Nasal Cannula Room Air O2 Flow Rate 2.0 2.0 03/25/20 03/25/20 03/25/20 03/25/20 08:28 08:29 10:24 10:58 Temp 97.8 97.8 Pulse 62 83 Resp 16 B/P (MAP) 127/66 123/58 (79) Pulse Ox 91 91 91 O2 Delivery Room Air Room Air Nasal Cannula O2 Flow Rate 2.0 2.0 2.0 Intake and Output 03/24/20 03/24/20 03/25/20 15:00 23:00 07:00 Intake Total 520 ml 300 ml 200 ml Output Total 300 ml Balance 520 ml 0 ml 200 ml REY ESPINOZA MD Mar 25, 2020 15:10
--- NOTE | 2020-03-25 15:29 | NUR ---
SS following up with discharge planning. Script for oxygen received. SS phoned and faxed script and clinical to [facility], ; fax [phone]. SS discussed with [employer] at [facility]. Oxygen tank provided for pt for home. Pt's RN notified.
[2020-03-25] MEDS: WARFARIN 2 MG TABLET. PO SCH (17:24)
--- NOTE | 2020-03-25 17:43 | NUR ---
Discharge Note: SHAYNA GODDARD Discharge instructions and discharge home medications reviewed with Patient and a copy given. All questions have been answered and understanding verbalized. Prescriptions sent to pharmacy by physician.
== END 2020-03-25 18:45 | disposition home health service (06) | DRG 604 ==
LOC: ER 03:36 → 2 NORTH 07:12
PROVIDERS: ADMIT Family Medicine; ATTEND Family Medicine
PROC: 4B02XSZ Measurement of Cardiac Pacemaker, External Approach (ICD-10-PCS; principal; 2020-03-24)
DX: S00.83XA Contusion of other part of head, initial encounter (principal); I50.33 Acute on chronic diastolic (congestive) heart failure; I48.21 Permanent atrial fibrillation; I13.0 Hypertensive heart and chronic kidney disease with heart failure and stage 1 through stage 4 chronic kidney disease, or unspecified chronic kidney disease; M19.90 Unspecified osteoarthritis, unspecified site; F17.200 Nicotine dependence, unspecified, uncomplicated; S00.93XA Contusion of unspecified part of head, initial encounter; I49.5 Sick sinus syndrome; I27.29 Other secondary pulmonary hypertension; E78.5 Hyperlipidemia, unspecified; G25.81 Restless legs syndrome; N18.9 Chronic kidney disease, unspecified; W06.XXXA Fall from bed, initial encounter; Y92.092 Bedroom in other non-institutional residence as the place of occurrence of the external cause; Y93.89 Activity, other specified; Y99.8 Other external cause status; Z95.2 Presence of prosthetic heart valve; Z95.0 Presence of cardiac pacemaker; Z91.81 History of falling; Z82.49 Family history of ischemic heart disease and other diseases of the circulatory system
CPT/HCPCS: 36415; 70450; 71045; 80053; 82550; 83880; 84484; 85025; 85610; 85730; 94618; 96361; 96365; 96375; 99285; J1940; J2405; J3490; J7030; 97530-GP; G0378; Q0164